=== PATIENT | female | born 1990 | race Caucasian/White ===

== ENCOUNTER → 2023-04-03 | Emergency (ER) | payer OTHER ==
--- OUTSIDE RECORDS SUMMARY | 2023-04-03 09:17 | XMS REPORT | Continuity of Care Document ---
Author Name Unknown Address [address] [facility] [address] [place] [id number] [facility] thconnect Address [address] [facility] 1 [address] [place] [address] Care Team Providers Care Power Barker Name Role Phone Skinny Steward Attending Clinician Jonn Fitch Attending Clinician Unavailable Skinny Steward Admitting Clinician Toshia grewal Payers Payer Name Policy Type Policy Number Effective Date Expirati on Date Source Allergies, Adverse Reactions, Alerts Allergy Name Allergy Type Status Severity Reaction(s) Onset Date Inactive Date Treating Clinician Comments Source No Known Allergie s DA Active U 05-19 00:00: 00 [facility] No Known Allergie s DA Active U 05-19 00:00: 00 [facility] No Known Allergie s DA Active U 00:00: 00 [facility] Procedures Procedure Date / Time Performed Performing Clinicia n Source [id number] 2020-04-10 00:00:00 [facility] [id number] 2020-04-10 00:00:00 [facility] [id number] 2020-04-10 [id number] 2020-04-10 [facility]:00:00 [facility] [id number] 2020-04-10 00:00:00 [facility] Encounters Start Date/Time End Date/Time Encounter Type Admission Type Attending [facility] Care Department Encounter ID Source 2022-07-02 09:55:21 [facility] REE [facility]ANNER 0 [facility] 2020-04-16 10:16:00 Inpatient UR Jilljeannie Skinny [facility]ABM OBPP [id number] [facility] 2020-04-11 12:16:22 Inpatient Skinny Steward HCABM HCABM [id number] [facility] 2020-03-31 15:07:54 Inpatient Skinny Steward HCACL HCACL [id number] [facility] 2022-03-29 16:24:00 2022-03-29 17:08:00 Emergency EM Jonn Capone HCACL YAMINI [id number] [facility] 2020-05-26 01:53:00 2020-05-26 01:53:00 Outpatient [facility] [id number] [facility] 2020-04-06 13:55:00 2020-04-06 13:55:00 Outpatient Skinny Steward HCACL LABO [id number] [facility] Results Test Description Test Time Test Comments Results Result Co mments Source CBC W/AUTO [id number] 13:47:00* Test Item Value Reference Range Interpretation Comme nts WHITE BLOOD CELL (test code = WBC) 9.5 K/mm3 4.5-12.5 N RED BLOOD CELL (test code = RBC) 3.47 mill/mm3 3.7-5.2 L HEMOGLOBIN (test code = HGB) 10.6 gram/dL 11.5-15.5 L HEMATOCRIT (test code = HCT) 33.3 % 36.0-46.0 L MEAN CELL VOLUME (test code = MCV) 96.0 fL 80-98 N MEAN CELL HGB (test code = MCH) 30.5 picogram 27.0-33.0 N MEAN CELL HGB CONCETRATION (test code = MCHC) 31.8 gram/dL 33.0-36.0 L RED CELL DISTRIBUTION WIDTH (test code = RDW) 12.7 % 11.6-16.2 N RED CELL DISTRIBUTION WIDTH SD (test code = RDW-SD) 43.8 fL 37.0-51.0 N PLATELET COUNT (test code = PLT) 276 K/mm3 150-450 N MEAN PLATELET VOLUME (test c ode = MPV) 10.1 fL 6.7-11.0 N NEUTROPHIL % (test code = NT%) 80.2 % 39.0-69.0 H IMMATURE GRANULOCYTE % (test code = IG%) 0.5 % 0.0-5.0 N LYMPHOCYTE % (test code = LY%) 13.0 % 25.0-55.0 L MONOCYTE % (test code = MO%) 4.8 % 0.0-10.0 N EOSINOPHIL % (test code = EO%) 1.2 % 0.0-5.0 N BASOPHIL % (test code = BA%) 0.3 % 0.0-1.0 N NUCLEATED RBC % (test code = NRBC%) 0.0 % 0-0 N NEUTROPHIL # (test code = NT#) 7.62 K/mm3 1.8-7.7 N IMMATURE GRANULOCYTE # (test code = IG#) 0.05 x10 3/uL 0-0.03 H LYMPHOCYTE # (test code = LY#) 1.24 K/mm3 1.0-5.0 N MONOCYTE # (test code = MO#) 0.46 K/mm3 0-0.8 N EOSINOPHIL # (test code = EO#) 0.11 K/mm3 0.0-0.5 N BASOPHIL # (test code = BA#) 0.03 K/mm3 0.0-0.2 N NUCLEATED RBC # (test code = NRBC#) 0.00 K/mm3 0.0-0.1 N MANUAL DIFF REQUIRED (test c ode = MDIFF) NO - CT ABD PELVIS [id number] 12:43:00 [facility]Name: BETHANY HUFF : 1990 Sex: F Name: BETHANY HUFF [facility] : 1990 Age/S: 29 / F [address] Unit #: [id number] Loc: [place] [address] Phys: Skinny Steward MD Acct: [id number] Dis Date: Status: ADM IN PHONE #: [phone] Exam Date: 04/16/2020 1224 FAX #: [phone] Reason:POST OP PAIN. EXAMS: CPT CODE: [id number] CT ABD PELVIS W/CONT 77079 REASON FOR EXAM: POST OP PAIN. EXAM ORDER DATE: 04/16/2020 11:07 AM Ordering M.D.: Skinny Steward MD PROCEDURE: Axial CT images were acquired through the abdomen/pelvis at 5 mm intervals. Sagittal and coronal reformatted images were generated. Automated exposure control was utilized for this reduction. Phases of contrast: venous and delayed COMPARISON: CT abdomen and pelvis March 26, 2018 and pelvic ultrasound April 03, 2020 FINDINGS: Visualized thorax: Normal Hepatobiliary system: Normal Pancreas: Normal Spleen: Normal Adrenal glands: Normal Genitourinary system: Normal Gastrointestinal tract and appendix: There is mural thickening of a few loops of small bowel proximally. The stomach appears to be within normallimits. Moderate stool burden is seen in the cecum and ascending colon Abdominal vascular structures: Normal Peritoneum and retroperitoneum: No free fluid or free air. No omental or mesenteric masses. No abnormal lymph nodes. Musculoskeletal structures and abdominal wall: There is scoliosis of the spine IMPRESSION: There is mural thickening of a few loops of proximal small bowel which PAGE 1 Signed Report (CONTINUED) Name: BETHANY HUFF [facility] : 1990 Age/S: 29 / F [address] Unit #: [id number] Loc: [place] [address] Phys: Skinny Steward MD Acct: [id number] Dis Date: Status: ADM IN PHONE #: [phone] Exam Date: 04/16/2020 1224 FAX #: [phone] Reason: POST OP PAIN. EXAMS: CPT CODE: [id number] CT ABD PELVIS W/CONT 38320 (Continued) may represent an infectious or inflammatory enteritis. Moderate stool burden involving the cecum and ascending colon may represent constipation. Location: [facility] at 1243 Reported and signed by: Jacob Rodriguez MD CC: Skinny Steward Technologist:Alfredo Lorenzo RT(R),(MR),(CT) CTDI: DLP: Trnscb Date/Time: 04/16/2020 (1243) t.SDR.RR31 Orig Print D/T: S: 04/16/2020 (6166) PAGE 2 Signed [id number] 16:05:00* Test Item Value Reference Range Interpretation Comme nts UTERUS (test code = UTERUS) RUN DATE: 04/13/20 [employer] PAGE 1 RUN TIME: 1606 Specimen Inquiry RUN USER: INTERFACE PATIENT: BETHANY HUFF LOC: [facility] U #: [id number] AGE/SX: 29/F ROOM: 2034 RE04/10/20REG DR: Skinny Steward MD : 89 BED: A DIS: 04/13/20 STATUS: DIS IN TLOC: SPEC #: [id number] RECD: 04/11/20 STATUS: DINO REKim #: [id number] HAVEN: 04/10/20-1527 [facility] DR: Skinny Steward MD ENTERED: 04/11/20 SP TYPE: UTERUS OTHR DR: Vandana Bahena MD, Dang Thanh MDORDERED: GROSS COPIES TO: Vandana Bahena MD [address] [place] [address] Nahtalie Rodriguez MD [address] [place] [address] Skinny Steward MD [address] [facility] [address] [place] [address] MARKERS: ABNORMAL TISSUE, UTERUS PROCEDURES: GROSS (04/13/20-110) TISSUES: UTERUS, NOS - CERVIX,LEFT OVERY, BILATERAL FALLOPIAN TUBES CLINICAL HISTORY COLLECTION DATE: 04/10/20 PELVIC PAIN, DYSMENORRHEA FINAL DIAGNOSIS Uterus, cervix, left ovary, and bilateral fallopian tubes, total abdominal hysterectomy, bilateral salpingectomy, and left oophorectomy: MILD ACUTE AND CHRONIC INFLAMMATION, ECTO-ENDOCERVICAL JUNCTION SECRETORY ENDOMETRIUM ADHESIONS, POSTERIOR LOWER UTERINE SEROSA HEMORRHAGIC ADHESIONS AND FOLLICULAR CYSTS, LEFT OVARY ADHESIONS AND A HYDATID OF MORGAGNI CYST, LEFT FALLOPIAN TUBE UNREMARKABLE RIGHT FALLOPIAN TUBE NEGATIVE FOR DYSPLASIA, HYPERPLASIA, AND MALIGNANCY CONTINUED ON NEXT PAGE RUN DATE: 04/13/20 [facility] PAGE 2 RUN TIME: 1606 Specimen Inquiry RUN USER: INTERFACE SPEC #: [id number] PATIENT: BETHANY HUFF #[id number] (Continued) FINAL DIAGNOSIS (Continued) DMW/cyril A 02350 MACROSCOPIC The specimen is received in a small amount of formalin labeled with the patient's name, "uterus, cervix, bilateral fallopian tubes" and consists of a symmetrically shaped uterus with attached left fallopian tube and ovary and separate right fallopian tube. The specimen measures 8.7 cm from the top of the fundus to the cervix, 5.5 cm from right to left and up to 4.0 cm in A/P diameter. The specimen has a trimmed weight of 87.5 grams. A separate segment of fimbriated right fallopian tube measures 3 cm in length with diameter up to 0.7 cm. A segment of left fimbriated fallopian tube measures 4.5 cm in length with diameter up to 0.7 cm. The fimbriated end measures 2.0 cm in diameter. There is a small transparent cyst at the fimbriated end. The adjacent ovary is pink-garza to pink-rose, focally cystic and measures 3.0 x 3.0 x 2.0 cm. The serosal surface is pink-garza to pink-rose with filmy adhesions on the posterior surface. The ectocervical mucosa is pink-garza and smooth. The cervical os is parous appearing. No cervical or endocervical lesions are identified. The endometrial cavity is empty. The lining is red and measures up to 0.2 cm in thickness. The myometrium is pink-garza, homogenous and measures up to 1.5 cm in thickness. No focal lesions are identified. No focal lesions are seen in the right fallopian tube. The left fallopian tube is adherent to the surface of the adjacent ovary along the distal half. Several small cortical cysts are present within the ovary. A hemorrhagic cyst is also present. No discrete nodules or masses are seen. Section code: 1A-1B, anterior and posterior cervix; 1C-1D, anterior and posterior endomyometrium; 1E, serosal adhesions; 1D, right fallopian tube; 1G, left fallopian tube; 1H, left ovary and fallopian tube GROSS PERFORMED AT [facility] [address] [place] [id number] [phone] MICROSCOPIC All of the stains, including any controls performed, stain appropriately. MICROSCOPIC PERFORMED AT [facility] CONTINUED ON NEXT PAGE RUN DATE: 04/13/20 [facility] PAGE 3 RUN TIME: 1606 Specimen Inquiry RUN USER: INTERFACE SPEC #: [id number] PATIENT: BETHANY HUFF #[id number] (Continued) MICROSCOPIC (Continued) [address] [facility] [place] [address] [phone] PERFORMING SITE Diagnosis performed at: [facility], [place] [address] [place] [address] Signed SIGNATURE ON FILE Dalia Rondon MD 04/13/20 1605 END OF REPORT CBC W/AUTO [id number] 06:15:00* Test Item Value Reference Range Interpretation Comme nts WHITE BLOOD CELL (test code = WBC) 7.3 K/mm3 4.5-12.5 N RED BLOOD CELL (test code = RBC) 2.86 mill/mm3 3.7-5.2 L HEMOGLOBIN (test code = HGB) 8.8 gram/dL 11.5-15.5 L HEMATOCRIT (test code = HCT) 27.0 % 36.0-46.0 L MEAN CELL VOLUME (test code = MCV) 94.4 fL 80-98 N MEAN CELL HGB (test code = MCH) 30.8 picogram 27.0-33.0 N MEAN CELL HGB CONCETRATION (test code = MCHC) 32.6 gram/dL 33.0-36.0 L RED CELL DISTRIBUTION WIDTH (test code = RDW) 12.5 % 11.6-16.2 N RED CELL DISTRIBUTION WIDTH SD (test code = RDW-SD) 43.4 fL 37.0-51.0 N PLATELET COUNT (test code = PLT) 135 K/mm3 150-450 L MEAN PLATELET VOLUME (test c ode = MPV) 10.7 fL 6.7-11.0 N NEUTROPHIL % (test code = NT%) 69.8 % 39.0-69.0 H IMMATURE GRANULOCYTE % (test code = IG%) 0.4 % 0.0-5.0 N LYMPHOCYTE % (test code = LY%) 22.5 % 25.0-55.0 L MONOCYTE % (test code = MO%) 4.8 % 0.0-10.0 N EOSINOPHIL % (test code = EO%) 2.2 % 0.0-5.0 N BASOPHIL % (test code = BA%) 0.3 % 0.0-1.0 N NUCLEATED RBC % (test code = NRBC%) 0.0 % 0-0 N NEUTROPHIL # (test code = NT#) 5.08 K/mm3 1.8-7.7 N IMMATURE GRANULOCYTE # (test code = IG#) 0.03 x10 3/uL 0-0.03 N LYMPHOCYTE # (test code = LY#) 1.64 K/mm3 1.0-5.0 N MONOCYTE # (test code = MO#) 0.35 K/mm3 0-0.8 N EOSINOPHIL # (test code = EO#) 0.16 K/mm3 0.0-0.5 N BASOPHIL # (test code = BA#) 0.02 K/mm3 0.0-0.2 N NUCLEATED RBC # (test code = NRBC#) 0.00 K/mm3 0.0-0.1 N MANUAL DIFF REQUIRED (test c ode = MDIFF) NO - CT HEAD/BRAIN W/O [id number] 10:52:00 [facility]Name: BETHANY HUFF : 1990 Sex: F Name: BETHANY HUFF [facility] : 1990 Age/S: 29 / F [address] [facility] Unit #: [id number] Loc: [place] [address] Phys: Skinny Steward MD Acct: [id number] Dis Date: Status: ADM IN PHONE #: [phone] Exam Date: 04/12/2020 1039 FAX #: [phone] Reason: s/p cardiac arrest EXAMS: CPT CODE: [id number] CT HEAD/BRAIN W/O CONT 14999 HISTORY: s/p cardiac arrest TECHNIQUE: Noncontrast 2.[address] of the head. Examination acquired within 24 hours of arrival. Automated exposure control for dose reduction. COMPARISON: CT scan of the brain May 13, 2017 FINDINGS: No lacerations or contusions of the scalp or facial soft tissues. Calvarium and skull base are intact. No acute hemorrhage. No intracranial mass, mass effect, or midline shift. No effacement of the sulci or blanton-white matter interface. No cortical atrophy. No signs of white matter small-vessel disease. No hydrocephalus.. No extra-axial fluid collection. Visualized paranasal sinuses are clear. Mastoid air cells and middle ear cavities are clear. Cerumen is present in the bilateral external auditory canals. Orbital contents are unremarkable. IMPRESSION: Negative CT head. Location: [facility] at 1052 Reported and signed by: Jacob Rodriguez MD CC: Skinny Steward Technologist:Alfredo Lorenzo RT(R),(MR),(CT) CTDI: DLP: Trnscb Date/Time: 04/12/2020 (884) [id number].[email or web address].RR31 Orig Print D/T: S: 04/12/2020 (1326) PAGE 1 Signed ReportCBC W/AUTO [id number] 09:58:00* Test Item Value Reference Range Interpretation Comme nts WHITE BLOOD CELL (test code = WBC) 13.0 K/mm3 4.5-12.5 H RED BLOOD CELL (test code = RBC) 3.54 mill/mm3 3.7-5.2 L HEMOGLOBIN (test code = HGB) 10.7 gram/dL 11.5-15.5 L HEMATOCRIT (test code = HCT) 33.0 % 36.0-46.0 L MEAN CELL VOLUME (test code = MCV) 93.2 fL 80-98 N MEAN CELL HGB (test code = MCH) 30.2 picogram 27.0-33.0 N MEAN CELL HGB CONCETRATION (test code = MCHC) 32.4 gram/dL 33.0-36.0 L RED CELL DISTRIBUTION WIDTH (test code = RDW) 12.7 % 11.6-16.2 N RED CELL DISTRIBUTION WIDTH SD (test code = RDW-SD) 43.6 fL 37.0-51.0 N PLATELET COUNT (test code = PLT) 154 K/mm3 150-450 N MEAN PLATELET VOLUME (test c ode = MPV) 11.0 fL 6.7-11.0 N NEUTROPHIL % (test code = NT%) 78.0 % 39.0-69.0 H IMMATURE GRANULOCYTE % (test code = IG%) 0.3 % 0.0-5.0 N LYMPHOCYTE % (test code = LY%) 15.7 % 25.0-55.0 L MONOCYTE % (test code = MO%) 5.8 % 0.0-10.0 N EOSINOPHIL % (test code = EO%) 0.1 % 0.0-5.0 N BASOPHIL % (test code = BA%) 0.1 % 0.0-1.0 N NUCLEATED RBC % (test code = NRBC%) 0.0 % 0-0 N NEUTROPHIL # (test code = NT#) 10.17 K/mm3 1.8-7.7 H IMMATURE GRANULOCYTE # (test code = IG#) 0.04 x10 3/uL 0-0.03 H LYMPHOCYTE # (test code = LY#) 2.05 K/mm3 1.0-5.0 N MONOCYTE # (test code = MO#) 0.76 K/mm3 0-0.8 N EOSINOPHIL # (test code = EO#) 0.01 K/mm3 0.0-0.5 N BASOPHIL # (test code = BA#) 0.01 K/mm3 0.0-0.2 N NUCLEATED RBC # (test code = NRBC#) 0.00 K/mm3 0.0-0.1 N COMPREHENSIVE METABOLIC [id number] 09:13:00* Test Item Value Reference Range Interpretation Comme nts SODIUM (test code = NA) 137 mmol/L 136-145 N POTASSIUM (test code = K) 3.6 mmol/L 3.5-5.1 N CHLORIDE (test code = CL) 110.0 mmol/L 98-107 H CARBON DIOXIDE (test code = CO2) 26.0 mmol/L 21-32 N ANION GAP (test code = GAP) 4.6 10-20 L GLUCOSE (test code = GLU) 108 mg/dL 74-106 H BLOOD UREA NITROGEN (test code = BUN) 8 mg/dL 7-18 N GLOMERULAR FILTRATION RATE (test code = GFR) > 60 mL/min See_Comment Estimated GFR by using Modified MDRD formula.Chronic kidney disease is defined as either kidney damageor GFR <60 mL/min/1.73 m2 for >3 months. [Automated message] The system which generated this result transmitted reference range: >=60. The reference range was not used to interpret this result as normal/abnormal. CREATININE (test code = CREAT) 0.50 mg/dL 0.55-1.02 L Note change in reference range due to change in reagent. BUN/CREATININE RATIO (test code = BUN/CREA) 15.1 10-20 N TOTAL PROTEIN (test code = PROT) 5.2 gram/dL 6.4-8.2 L ALBUMIN (test code = ALB) 3.0 g/dL 3.4-5.0 L GLOBULIN (test code = GLOB) 2.2 gram/dL 2.7-4.2 L ALBUMIN/GLOBULIN RATIO (test code = A/G) 1.4 0.75-1.50 N CALCIUM (test code = CA) 7.8 mg/dL 8.5-10.1 L BILIRUBIN TOTAL (test code = BILT) 0.60 mg/dL 0.0-1.0 N SGOT/AST (test code = AST) 32 IUnit/L 15-37 N SGPT/ALT (test code = ALT) 18 IUnit/L 12-78 N ALKALINE PHOSPHATASE TOTAL (test code = ALKP) 44 IUnit/L 45-117 L Note change in reference range due to change in reagent. [id number] 08:45:00* Test Item Value Reference Range Interpretation Comme nts FIBRINOGEN (test code = FIB) 268 mg/dL 200-400 N - XR CHEST 1 [id number] 07:21:00 [facility])Name: BETHANY HUFF : 1990 Sex: F FAX: Mark Snyder DO [phone] [place]: [address]: [facility] FAX: Skinny Blank [phone] Name: BETHANY HUFF [facility] : 1990 Age/S: 29/F [address] Unit #: [id number] Loc: V.[facility] [place] [address] Phys: Mark Cody DO Acct: [id number] Dis Date: Status: ADMIN PHONE #: [phone] Exam Date: 04/11/2020520 FAX #: [phone] Reason: S/P CPR EXAMS: CPTCODE: [id number] XR CHEST 1 V 48814 REASON FOR EXAM: S/P CPR Exam Order Date: 04/11/2020 2:00 AM Ordering Dedrick: Mark Cody DO PROCEDURE: - XR CHEST 1 V COMPARISON: 05/13/2017 FINDINGS: Lines/Tubes: None Patchy bilateral airspace opacities. There is no pleural effusion or pneumothorax. Pulmonary vascularity is within normal limits. Cardiomediastinal silhouette and mediastinal contours are unchanged when accounting for differences in technique. Musculoskeletal structures and visualized portions of the upper abdomen are also unchanged. IMPRESSION: Patchy bilateral airspace opacities may represent infectious process, edema, or atelectasis. Location: [facility] at 0721 Reported and signed by: Darek De La Vega M.D. CC: Mark Cody DO; Skinny Steward Technologist: OPAL YUSUF JR RT(R) Trnscrd Date/Time/By: 04/11/2020 (720) : By: [id number] Orig Print D/T: S: 04/11/2020 (8035) PAGE 1 Signed ReportCOMPREHENSIVE METABOLIC [id number] 03:46:00* Test Item Value Reference Range Interpretation Comme nts SODIUM (test code = NA) 137 mmol/L 136-145 N POTASSIUM (test code = K) 3.8 mmol/L 3.5-5.1 N CHLORIDE (test code = CL) 113.0 mmol/L 98-107 H CARBON DIOXIDE (test code = CO2) 22.0 mmol/L 21-32 N ANION GAP (test code = GAP) 5.8 10-20 L GLUCOSE (test code = GLU) 122 mg/dL 74-106 H BLOOD UREA NITROGEN (test code = BUN) 8 mg/dL 7-18 N GLOMERULAR FILTRATION RATE (test code = GFR) > 60 mL/min See_Comment Estimated GFR by using Modified MDRD formula.Chronic kidney disease is defined as either kidney damageor GFR <60 mL/min/1.73 m2 for >3 months. [Automated message] The system which generated this result transmitted reference range: >=60. The reference range was not used to interpret this result as normal/abnormal. CREATININE (test code = CREAT) 0.50 mg/dL 0.55-1.02 L Note change in reference range due to change in reagent. BUN/CREATININE RATIO (test code = BUN/CREA) 15.7 10-20 N TOTAL PROTEIN (test code = PROT) 4.8 gram/dL 6.4-8.2 L ALBUMIN (test code = ALB) 2.8 g/dL 3.4-5.0 L GLOBULIN (test code = GLOB) 2.0 gram/dL 2.7-4.2 L ALBUMIN/GLOBULIN RATIO (test code = A/G) 1.4 0.75-1.50 N CALCIUM (test code = CA) 7.2 mg/dL 8.5-10.1 L BILIRUBIN TOTAL (test code = BILT) 0.50 mg/dL 0.0-1.0 N SGOT/AST (test code = AST) 29 IUnit/L 15-37 N SGPT/ALT (test code = ALT) 17 IUnit/L 12-78 N ALKALINE PHOSPHATASE TOTAL (test code = ALKP) 40 IUnit/L 45-117 L Note change in reference range due to change in reagent. [id number] 03:46:00* Test Item Value Reference Range Interpretation Comme nts PHOSPHORUS (test code = PHOS) 3.4 mg/dL 2.5-4.9 N CALCIUM [id number] 03:46:00* Test Item Value Reference Range Interpretation Comme nts CALCIUM IONIZED (test code = CIRILO) 1.19 mmol/L 1.12-1.32 N COMPREHENSIVE METABOLIC [id number] 03:44:00* Test Item Value Reference Range Interpretation Comme nts SODIUM (test code = NA) 137 mmol/L 136-145 N POTASSIUM (test code = K) 3.8 mmol/L 3.5-5.1 N CHLORIDE (test code = CL) 113.0 mmol/L 98-107 H CARBON DIOXIDE (test code = CO2) 22.0 mmol/L 21-32 N ANION GAP (test code = GAP) 5.8 10-20 L GLUCOSE (test code = GLU) 122 mg/dL 74-106 H BLOOD UREA NITROGEN (test code = BUN) 8 mg/dL 7-18 N GLOMERULAR FILTRATION RATE (test code = GFR) > 60 mL/min See_Comment Estimated GFR by using Modified MDRD formula.Chronic kidney disease is defined as either kidney damageor GFR <60 mL/min/1.73 m2 for >3 months. [Automated message] The system which generated this result transmitted reference range: >=60. The reference range was not used to interpret this result as normal/abnormal. CREATININE (test code = CREAT) 0.50 mg/dL 0.55-1.02 L Note change in reference range due to change in reagent. BUN/CREATININE RATIO (test code = BUN/CREA) 15.7 10-20 N TOTAL PROTEIN (test code = PROT) 4.8 gram/dL 6.4-8.2 L ALBUMIN (test code = ALB) 2.8 g/dL 3.4-5.0 L GLOBULIN (test code = GLOB) 2.0 gram/dL 2.7-4.2 L ALBUMIN/GLOBULIN RATIO (test code = A/G) 1.4 0.75-1.50 N CALCIUM (test code = CA) 7.2 mg/dL 8.5-10.1 L BILIRUBIN TOTAL (test code = BILT) 0.50 mg/dL 0.0-1.0 N SGOT/AST (test code = AST) 29 IUnit/L 15-37 N SGPT/ALT (test code = ALT) 17 IUnit/L 12-78 N ALKALINE PHOSPHATASE TOTAL (test code = ALKP) 40 IUnit/L 45-117 L Note change in reference range due to change in reagent. [id number] 03:44:00* Test Item Value Reference Range Interpretation Comme nts PHOSPHORUS (test code = PHOS) 3.4 mg/dL 2.5-4.9 N CALCIUM [id number] 03:44:00* Test Item Value Reference Range Interpretation Comme nts CALCIUM IONIZED (test code = CIRILO) mmol/L 1.12-1.32 CBC W/AUTO [id number] 02:59:00* Test Item Value Reference Range Interpretation Comme nts WHITE BLOOD CELL (test code = WBC) 16.1 K/mm3 4.5-12.5 H RED BLOOD CELL (test code = RBC) 3.65 mill/mm3 3.7-5.2 L HEMOGLOBIN (test code = HGB) 11.1 gram/dL 11.5-15.5 L HEMATOCRIT (test code = HCT) 34.8 % 36.0-46.0 L MEAN CELL VOLUME (test code = MCV) 95.3 fL 80-98 N MEAN CELL HGB (test code = MCH) 30.4 picogram 27.0-33.0 N MEAN CELL HGB CONCETRATION (test code = MCHC) 31.9 gram/dL 33.0-36.0 L RED CELL DISTRIBUTION WIDTH (test code = RDW) 12.6 % 11.6-16.2 N RED CELL DISTRIBUTION WIDTH SD (test code = RDW-SD) 43.9 fL 37.0-51.0 N PLATELET COUNT (test code = PLT) 168 K/mm3 150-450 N MEAN PLATELET VOLUME (test c ode = MPV) 10.8 fL 6.7-11.0 N NEUTROPHIL % (test code = NT%) 91.5 % 39.0-69.0 H IMMATURE GRANULOCYTE % (test code = IG%) 0.4 % 0.0-5.0 N LYMPHOCYTE % (test code = LY%) 4.5 % 25.0-55.0 L MONOCYTE % (test code = MO%) 3.5 % 0.0-10.0 N EOSINOPHIL % (test code = EO%) 0.0 % 0.0-5.0 N BASOPHIL % (test code = BA%) 0.1 % 0.0-1.0 N NUCLEATED RBC % (test code = NRBC%) 0.0 % 0-0 N NEUTROPHIL # (test code = NT#) 14.69 K/mm3 1.8-7.7 H IMMATURE GRANULOCYTE # (test code = IG#) 0.06 x10 3/uL 0-0.03 H LYMPHOCYTE # (test code = LY#) 0.73 K/mm3 1.0-5.0 L MONOCYTE # (test code = MO#) 0.56 K/mm3 0-0.8 N EOSINOPHIL # (test code = EO#) 0.00 K/mm3 0.0-0.5 N BASOPHIL # (test code = BA#) 0.02 K/mm3 0.0-0.2 N NUCLEATED RBC # (test code = NRBC#) 0.00 K/mm3 0.0-0.1 N MANUAL DIFF REQUIRED (test c ode = MDIFF) NO CBC W/MANUAL [id number] 21:13:00* Test Item Value Reference Range Interpretation Comme nts WHITE BLOOD CELL (test code = WBC) 21.9 K/mm3 4.5-12.5 H RED BLOOD CELL (test code = RBC) 3.80 mill/mm3 3.7-5.2 N HEMOGLOBIN (test code = HGB) 12.1 gram/dL 11.5-15.5 N HEMATOCRIT (test code = HCT) 36.3 % 36.0-46.0 N MEAN CELL VOLUME (test code = MCV) 95.5 fL 80-98 N MEAN CELL HGB (test code = MCH) 31.8 picogram 27.0-33.0 N MEAN CELL HGB CONCETRATION (test code = MCHC) 33.3 gram/dL 33.0-36.0 N RED CELL DISTRIBUTION WIDTH (test code = RDW) 12.6 % 11.6-16.2 N RED CELL DISTRIBUTION WIDTH SD (test code = RDW-SD) 44.0 fL 37.0-51.0 N PLATELET COUNT (test code = PLT) 169 K/mm3 150-450 N MEAN PLATELET VOLUME (test code = MPV) 10.7 fL 6.7-11.0 N IMMATURE GRANULOCYTE % (test code = IG%) 0.5 % 0.0-5.0 N NUCLEATED RBC % (test code = NRBC%) 0.0 % 0-0 N NEUTROPHIL # (test code = NT#) 20.36 K/mm3 1.8-7.7 H IMMATURE GRANULOCYTE # (test code = IG#) 0.10 x10 3/uL 0-0.03 H LYMPHOCYTE # (test code = LY#) 0.58 K/mm3 1.0-5.0 L MONOCYTE # (test code = MO#) 0.86 K/mm3 0-0.8 H EOSINOPHIL # (test code = EO#) 0.00 K/mm3 0.0-0.5 N BASOPHIL # (test code = BA#) 0.04 K/mm3 0.0-0.2 N NUCLEATED RBC # (test code = NRBC#) 0.00 K/mm3 0.0-0.1 N MANUAL DIFF REQUIRED (test code = MDIFF) YES STAIN ACCEPTABILITY (test code = STN ACCEPTABLE) STAIN ACCEPTABLE TOTAL CELLS COUNTED (test code = TCC) 115 #CELLS SEGMENTED NEUTROPHILS (test code = SEG) 79.1 % 39-69 H BAND NEUTROPHIL (test code = BAND) 14.8 % 0-10 H LYMPHOCYTE (test code = LYMPH) 0.9 % 25-55 L REACTIVE LYMPH (test code = RELYMPH) 0 % MONOCYTE (test code = MON) 5.2 % 0-10 N EOSINOPHIL (test code = EOS) 0 % 0.0-5.0 N BASOPHIL (test code = BASO) 0 % 0-1.0 N METAMYELOCYTE (test code = META) 0 % 0-0 N MYELOCYTE (test code = MYELO) 0 % 0.0-0.0 N PROMYELOCYTE (test code = PROM) 0 % 0-0 N PLATELET ESTIMATE (test code = PLTEST) ADEQUATE PLATELET MORPHOLOGY (test code = PLTMORPH) NORMAL IMMATURE FORMS (test code = IMMAT) 0 % 0-0 N BASIC METABOLIC [id number] 20:59:00* Test Item Value Reference Range Interpretation Comme nts SODIUM (test code = NA) 140 mmol/L 136-145 N POTASSIUM (test code = K) 3.6 mmol/L 3.5-5.1 N CHLORIDE (test code = CL) 115.0 mmol/L 98-107 H CARBON DIOXIDE (test code = CO2) 23.0 mmol/L 21-32 N ANION GAP (test code = GAP) 5.6 10-20 L GLUCOSE (test code = GLU) 152 mg/dL 74-106 H BLOOD UREA NITROGEN (test code = BUN) 9 mg/dL 7-18 N GLOMERULAR FILTRATION RATE (test code = GFR) > 60 mL/min See_Comment Estimated GFR by using Modified MDRD formula.Chronic kidney disease is defined as either kidney damageor GFR <60 mL/min/1.73 m2 for >3 months. [Automated message] The system which generated this result transmitted reference range: >=60. The reference range was not used to interpret this result as normal/abnormal. CREATININE (test code = CREAT) 0.50 mg/dL 0.55-1.02 L Note change in reference range due to change in reagent. BUN/CREATININE RATIO (test code = BUN/CREA) 19.1 10-20 N CALCIUM (test code = CA) 7.6 mg/dL 8.5-10.1 L [id number] 20:54:00* Test Item Value Reference Range Interpretation Comme nts FIBRINOGEN (test code = FIB) 186 mg/dL 200-400 L PROTHROMBIN [id number] 20:35:00* Test Item Value Reference Range Interpretation Comme nts PROTHROMBIN TIME PATIENT (test code = PTP) 14.0 seconds 9.0-14.0 N INTERNATIONAL NORMAL RATIO (test code = INR) 1.2 0.8-1.2 N The therapeutic range for oral anticoagulant therapy formost indications is an international normalized ratio (INR)of between 2.0 and 3.0. The recommended therapeutic INRrange for various clinical situations is listed below: Clinical Situation INR range Pulmonary embolism treatment (2.0-3.0)Venous thrombosis treatmentVenous thrombosis prophylaxis (high risk surgery)Prevention of systemic embolism from: Acute myocardial infarction Valvular heart disease Atrial fibrillation Mechanical prosthetic heart valves (2.5-3.5) IS PATIENT ON ANTICOAGULANTS? NTHROMBOPLASTIN TIME [id number] 20:35:00* Test Item Value Reference Range Interpretation Comme nts THROMBOPLASTIN TIME PARTIAL (test code = PTT) 27.2 seconds 23.0-37.0 N IS PATIENT ON ANTICOAGULANTS? NCBC W/MANUAL [id number] 20:25:00* Test Item Value Reference Range Interpretation Comme nts WHITE BLOOD CELL (test code = WBC) 21.9 K/mm3 4.5-12.5 H RED BLOOD CELL (test code = RBC) 3.80 mill/mm3 3.7-5.2 N HEMOGLOBIN (test code = HGB) 12.1 gram/dL 11.5-15.5 N HEMATOCRIT (test code = HCT) 36.3 % 36.0-46.0 N MEAN CELL VOLUME (test code = MCV) 95.5 fL 80-98 N MEAN CELL HGB (test code = MCH) 31.8 picogram 27.0-33.0 N MEAN CELL HGB CONCETRATION (test code = MCHC) 33.3 gram/dL 33.0-36.0 N RED CELL DISTRIBUTION WIDTH (test code = RDW) 12.6 % 11.6-16.2 N RED CELL DISTRIBUTION WIDTH SD (test code = RDW-SD) 44.0 fL 37.0-51.0 N PLATELET COUNT (test code = PLT) 169 K/mm3 150-450 N MEAN PLATELET VOLUME (test c ode = MPV) 10.7 fL 6.7-11.0 N IMMATURE GRANULOCYTE % (test code = IG%) 0.5 % 0.0-5.0 N NUCLEATED RBC % (test code = NRBC%) 0.0 % 0-0 N NEUTROPHIL # (test code = NT#) 20.36 K/mm3 1.8-7.7 H IMMATURE GRANULOCYTE # (test code = IG#) 0.10 x10 3/uL 0-0.03 H LYMPHOCYTE # (test code = LY#) 0.58 K/mm3 1.0-5.0 L MONOCYTE # (test code = MO#) 0.86 K/mm3 0-0.8 H EOSINOPHIL # (test code = EO#) 0.00 K/mm3 0.0-0.5 N BASOPHIL # (test code = BA#) 0.04 K/mm3 0.0-0.2 N NUCLEATED RBC # (test code = NRBC#) 0.00 K/mm3 0.0-0.1 N MANUAL DIFF REQUIRED (test c ode = MDIFF) YES STAIN ACCEPTABILITY (test co de = STN ACCEPTABLE) TOTAL CELLS COUNTED (test co de = TCC) #CELLS SEGMENTED NEUTROPHILS (test code = SEG) % 39-69 LYMPHOCYTE (test code = LYMPH) % 25-55 MONOCYTE (test code = MON) % 0-10 EOSINOPHIL (test code = EOS) % 0.0-5.0 CABOT RINGS (test code = CAB) MORPHOLOGY COMMENT (test cod e = MOC) PLATELET ESTIMATE (test code = PLTEST) PLATELET MORPHOLOGY (test co de = PLTMORPH) CBC W/MANUAL [id number] 20:25:00* Test Item Value Reference Range Interpretation Comme nts WHITE BLOOD CELL (test code = WBC) 21.9 K/mm3 4.5-12.5 H RED BLOOD CELL (test code = RBC) 3.80 mill/mm3 3.7-5.2 N HEMOGLOBIN (test code = HGB) 12.1 gram/dL 11.5-15.5 N HEMATOCRIT (test code = HCT) 36.3 % 36.0-46.0 N MEAN CELL VOLUME (test code = MCV) 95.5 fL 80-98 N MEAN CELL HGB (test code = MCH) 31.8 picogram 27.0-33.0 N MEAN CELL HGB CONCETRATION (test code = MCHC) 33.3 gram/dL 33.0-36.0 N RED CELL DISTRIBUTION WIDTH (test code = RDW) 12.6 % 11.6-16.2 N RED CELL DISTRIBUTION WIDTH SD (test code = RDW-SD) 44.0 fL 37.0-51.0 N PLATELET COUNT (test code = PLT) 169 K/mm3 150-450 N MEAN PLATELET VOLUME (test c ode = MPV) 10.7 fL 6.7-11.0 N IMMATURE GRANULOCYTE % (test code = IG%) 0.5 % 0.0-5.0 N NUCLEATED RBC % (test code = NRBC%) 0.0 % 0-0 N NEUTROPHIL # (test code = NT#) 20.36 K/mm3 1.8-7.7 H IMMATURE GRANULOCYTE # (test code = IG#) 0.10 x10 3/uL 0-0.03 H LYMPHOCYTE # (test code = LY#) 0.58 K/mm3 1.0-5.0 L MONOCYTE # (test code = MO#) 0.86 K/mm3 0-0.8 H EOSINOPHIL # (test code = EO#) 0.00 K/mm3 0.0-0.5 N BASOPHIL # (test code = BA#) 0.04 K/mm3 0.0-0.2 N NUCLEATED RBC # (test code = NRBC#) 0.00 K/mm3 0.0-0.1 N MANUAL DIFF REQUIRED (test c ode = MDIFF) YES STAIN ACCEPTABILITY (test co de = STN ACCEPTABLE) TOTAL CELLS COUNTED (test co de = TCC) #CELLS SEGMENTED NEUTROPHILS (test code = SEG) % 39-69 LYMPHOCYTE (test code = LYMPH) % 25-55 MONOCYTE (test code = MON) % 0-10 EOSINOPHIL (test code = EOS) % 0.0-5.0 CABOT RINGS (test code = CAB) MORPHOLOGY COMMENT (test cod e = MOC) PLATELET ESTIMATE (test code = PLTEST) PLATELET MORPHOLOGY (test co de = PLTMORPH) CBC W/MANUAL [id number] 20:25:00* Test Item Value Reference Range Interpretation Comme nts WHITE BLOOD CELL (test code = WBC) 21.9 K/mm3 4.5-12.5 H RED BLOOD CELL (test code = RBC) 3.80 mill/mm3 3.7-5.2 N HEMOGLOBIN (test code = HGB) 12.1 gram/dL 11.5-15.5 N HEMATOCRIT (test code = HCT) 36.3 % 36.0-46.0 N MEAN CELL VOLUME (test code = MCV) 95.5 fL 80-98 N MEAN CELL HGB (test code = MCH) 31.8 picogram 27.0-33.0 N MEAN CELL HGB CONCETRATION (test code = MCHC) 33.3 gram/dL 33.0-36.0 N RED CELL DISTRIBUTION WIDTH (test code = RDW) 12.6 % 11.6-16.2 N RED CELL DISTRIBUTION WIDTH SD (test code = RDW-SD) 44.0 fL 37.0-51.0 N PLATELET COUNT (test code = PLT) 169 K/mm3 150-450 N MEAN PLATELET VOLUME (test c ode = MPV) 10.7 fL 6.7-11.0 N IMMATURE GRANULOCYTE % (test code = IG%) 0.5 % 0.0-5.0 N NUCLEATED RBC % (test code = NRBC%) 0.0 % 0-0 N NEUTROPHIL # (test code = NT#) 20.36 K/mm3 1.8-7.7 H IMMATURE GRANULOCYTE # (test code = IG#) 0.10 x10 3/uL 0-0.03 H LYMPHOCYTE # (test code = LY#) 0.58 K/mm3 1.0-5.0 L MONOCYTE # (test code = MO#) 0.86 K/mm3 0-0.8 H EOSINOPHIL # (test code = EO#) 0.00 K/mm3 0.0-0.5 N BASOPHIL # (test code = BA#) 0.04 K/mm3 0.0-0.2 N NUCLEATED RBC # (test code = NRBC#) 0.00 K/mm3 0.0-0.1 N MANUAL DIFF REQUIRED (test c ode = MDIFF) YES STAIN ACCEPTABILITY (test co de = STN ACCEPTABLE) TOTAL CELLS COUNTED (test co de = TCC) #CELLS SEGMENTED NEUTROPHILS (test code = SEG) % 39-69 LYMPHOCYTE (test code = LYMPH) % 25-55 MONOCYTE (test code = MON) % 0-10 EOSINOPHIL (test code = EOS) % 0.0-5.0 MORPHOLOGY COMMENT (test cod e = MOC) PLATELET ESTIMATE (test code = PLTEST) PLATELET MORPHOLOGY (test co de = PLTMORPH) CBC W/MANUAL [id number] 20:25:00* Test Item Value Reference Range Interpretation Comme nts WHITE BLOOD CELL (test code = WBC) 21.9 K/mm3 4.5-12.5 H RED BLOOD CELL (test code = RBC) 3.80 mill/mm3 3.7-5.2 N HEMOGLOBIN (test code = HGB) 12.1 gram/dL 11.5-15.5 N HEMATOCRIT (test code = HCT) 36.3 % 36.0-46.0 N MEAN CELL VOLUME (test code = MCV) 95.5 fL 80-98 N MEAN CELL HGB (test code = MCH) 31.8 picogram 27.0-33.0 N MEAN CELL HGB CONCETRATION (test code = MCHC) 33.3 gram/dL 33.0-36.0 N RED CELL DISTRIBUTION WIDTH (test code = RDW) 12.6 % 11.6-16.2 N RED CELL DISTRIBUTION WIDTH SD (test code = RDW-SD) 44.0 fL 37.0-51.0 N PLATELET COUNT (test code = PLT) 169 K/mm3 150-450 N MEAN PLATELET VOLUME (test c ode = MPV) 10.7 fL 6.7-11.0 N IMMATURE GRANULOCYTE % (test code = IG%) 0.5 % 0.0-5.0 N NUCLEATED RBC % (test code = NRBC%) 0.0 % 0-0 N NEUTROPHIL # (test code = NT#) 20.36 K/mm3 1.8-7.7 H IMMATURE GRANULOCYTE # (test code = IG#) 0.10 x10 3/uL 0-0.03 H LYMPHOCYTE # (test code = LY#) 0.58 K/mm3 1.0-5.0 L MONOCYTE # (test code = MO#) 0.86 K/mm3 0-0.8 H EOSINOPHIL # (test code = EO#) 0.00 K/mm3 0.0-0.5 N BASOPHIL # (test code = BA#) 0.04 K/mm3 0.0-0.2 N NUCLEATED RBC # (test code = NRBC#) 0.00 K/mm3 0.0-0.1 N MANUAL DIFF REQUIRED (test c ode = MDIFF) YES STAIN ACCEPTABILITY (test co de = STN ACCEPTABLE) TOTAL CELLS COUNTED (test co de = TCC) #CELLS SEGMENTED NEUTROPHILS (test code = SEG) % 39-69 LYMPHOCYTE (test code = LYMPH) % 25-55 MONOCYTE (test code = MON) % 0-10 MORPHOLOGY COMMENT (test cod e = MOC) PLATELET ESTIMATE (test code = PLTEST) PLATELET MORPHOLOGY (test co de = PLTMORPH) CBC W/MANUAL [id number] 20:25:00* Test Item Value Reference Range Interpretation Comme nts WHITE BLOOD CELL (test code = WBC) 21.9 K/mm3 4.5-12.5 H RED BLOOD CELL (test code = RBC) 3.80 mill/mm3 3.7-5.2 N HEMOGLOBIN (test code = HGB) 12.1 gram/dL 11.5-15.5 N HEMATOCRIT (test code = HCT) 36.3 % 36.0-46.0 N MEAN CELL VOLUME (test code = MCV) 95.5 fL 80-98 N MEAN CELL HGB (test code = MCH) 31.8 picogram 27.0-33.0 N MEAN CELL HGB CONCETRATION (test code = MCHC) 33.3 gram/dL 33.0-36.0 N RED CELL DISTRIBUTION WIDTH (test code = RDW) 12.6 % 11.6-16.2 N RED CELL DISTRIBUTION WIDTH SD (test code = RDW-SD) 44.0 fL 37.0-51.0 N PLATELET COUNT (test code = PLT) 169 K/mm3 150-450 N MEAN PLATELET VOLUME (test c ode = MPV) 10.7 fL 6.7-11.0 N IMMATURE GRANULOCYTE % (test code = IG%) 0.5 % 0.0-5.0 N NUCLEATED RBC % (test code = NRBC%) 0.0 % 0-0 N NEUTROPHIL # (test code = NT#) 20.36 K/mm3 1.8-7.7 H IMMATURE GRANULOCYTE # (test code = IG#) 0.10 x10 3/uL 0-0.03 H LYMPHOCYTE # (test code = LY#) 0.58 K/mm3 1.0-5.0 L MONOCYTE # (test code = MO#) 0.86 K/mm3 0-0.8 H EOSINOPHIL # (test code = EO#) 0.00 K/mm3 0.0-0.5 N BASOPHIL # (test code = BA#) 0.04 K/mm3 0.0-0.2 N NUCLEATED RBC # (test code = NRBC#) 0.00 K/mm3 0.0-0.1 N MANUAL DIFF REQUIRED (test c ode = MDIFF) YES STAIN ACCEPTABILITY (test co de = STN ACCEPTABLE) TOTAL CELLS COUNTED (test co de = TCC) #CELLS SEGMENTED NEUTROPHILS (test code = SEG) % 39-69 LYMPHOCYTE (test code = LYMPH) % 25-55 MONOCYTE (test code = MON) % 0-10 EOSINOPHIL (test code = EOS) % 0.0-5.0 CABOT RINGS (test code = CAB) MORPHOLOGY COMMENT (test cod e = MOC) PLATELET ESTIMATE (test code = PLTEST) PLATELET MORPHOLOGY (test co de = PLTMORPH) - XR ABDOMEN AP 1 [id number] 17:47:00 [facility])Name: BETHANY HUFF : 1990 Sex: F FAX: Skinny Blank [phone] [place]: St: REG Name: BETHANY HUFF [facility] : 1990 Age/S: 29/F [address] [facility] Unit #: [id number] Loc: [place] [address] Phys: Skinny Steward MD Acct: [id number] Dis Date: Status: REG [facility] PHONE #: [phone] Exam Date: 04/10/2020 1637 FAX #: [phone] Reason: NEEDLE COUNT EXAMS: CPT CODE: [id number] XR ABDOMEN AP 1 V 17089 EXAM: Abdomen, one view; INFORMATION: Needle count; history of pelvic pain and dysmenorrhea; IMPRESSION: 1. 1. A KUB with includes the the abdomen and the cranial two thirds of the pelvis but not the distal portion, shows no radiopaque foreign body. 2. Unremarkable bowel gas pattern. 3. No abnormal calcifications. Location code: [facility] at 1747 Reported and signed by: José Miguel Lema M.D. CC: Skinny Steward Technologist: RT Zhane(R Trnscrd Date/Time/By: 04/10/2020 (8771) : By: AdriGRW Orig Print D/T: S: 04/10/2020 (8505) PAGE 1 Signed [id number] 10:15:00* Test Item Value Reference Range Interpretation Comme nts GLUBED (test code = GLUBED) 75 mg/dL 74-106 N Performed by cer yarelis form grader operator at [facility] Novel Coronavirus 12:03:00* Test Item Value Reference Range Interpretation Comme nts Novel Coronavirus 2018 Inhouse (test code = [id number]) Negative Negative Positive resul ts are indicative of the presence [id number] RNA, clinical correlation with patient historyand other diagnostic information is necessary to determinepatient infection status. Positive results do not rule outbacterial infection or co-infection with other viruses. Negative results do not preclude SARS-CoV-2 infection andshould not be used as the sole basis for patient managementdecisions. Negative results must be combined with otherclinical observations, patient history, and epidemiologicalinformation . Detection of SARS-CoV-2 RNA may be affected bysample collection methods, storage conditions, and/or stageof infection. Viral RNA mutations, vaccinations, antiviraltherapeutics, antibiotics, chemotherapeutic orimmunosuppressant drugs have not been evaluated for effectson detection. Results are for the identification of SARS-CoV-2 RNA usingthe [employer] M2000 System under the FDA Emergency UseAuthorization. The testing is performed by personneltrained in the procedures for the [employer] M2000 moleculardiagnostic SARS-CoV-2 assay in vitro. Novel Coronavirus 12:03:00* Test Item Value Reference Range Interpretation Comme nts Novel Coronavirus 2018 Inhouse (test code = [id number]) Negative Negative Positive resul ts are indicative of the presence meXJNX-[id number]-7 RNA, clinical correlation with patient historyand other diagnostic information is necessary to determinepatient infection status. Positive results do not rule outbacterial infection or co-infection with other viruses. Negative results do not preclude SARS-CoV-2 infection andshould not be used as the sole basis for patient managementdecisions. Negative results must be combined with otherclinical observations, patient history, and epidemiologicalinformation . Detection of SARS-CoV-2 RNA may be affected bysample collection methods, storage conditions, and/or stageof infection. Viral RNA mutations, vaccinations, antiviraltherapeutics, antibiotics, chemotherapeutic orimmunosuppressant drugs have not been evaluated for effectson detection. Results are for the identification of SARS-CoV-2 RNA usingthe [employer] M2000 System under the FDA Emergency UseAuthorization. The testing is performed by personneltrained in the procedures for the [employer] M2000 moleculardiagnostic SARS-CoV-2 assay in vitro. HCG SERUM [id number] 14:04:00* Test Item Value Reference Range Interpretation Comme nts HCG SERUM QUAL (test code = HCGQL) NEGATIVE NEGATIVE This HCGQL test is NOT applicable for MALE patients.Check with nurse about probable order error.If Tumor Marker Test needed, nurse should order test "HCGTU"(Test #[id number]) COMPREHENSIVE METABOLIC [id number] 14:00:00* Test Item Value Reference Range Interpretation Comme nts SODIUM (test code = NA) 138 mmol/L 136-145 N POTASSIUM (test code = K) 3.9 mmol/L 3.5-5.1 N CHLORIDE (test code = CL) 107.0 mmol/L 98-107 N CARBON DIOXIDE (test code = CO2) 29.0 mmol/L 21-32 N ANION GAP (test code = GAP) 5.9 10-20 L GLUCOSE (test code = GLU) 83 mg/dL 74-106 N BLOOD UREA NITROGEN (test code = BUN) 17 mg/dL 7-18 N GLOMERULAR FILTRATION RATE (test code = GFR) > 60 mL/min See_Comment Estimated GFR by using Modified MDRD formula.Chronic kidney disease is defined as either kidney damageor GFR <60 mL/min/1.73 m2 for >3 months. [Automated message] The system which generated this result transmitted reference range: >=60. The reference range was not used to interpret this result as normal/abnormal. CREATININE (test code = CREAT) 0.70 mg/dL 0.55-1.02 N Note change in reference range due to change in reagent. BUN/CREATININE RATIO (test code = BUN/CREA) 25.0 10-20 H TOTAL PROTEIN (test code = PROT) 7.2 gram/dL 6.4-8.2 N ALBUMIN (test code = ALB) 4.5 g/dL 3.4-5.0 N GLOBULIN (test code = GLOB) 2.7 gram/dL 2.7-4.2 N ALBUMIN/GLOBULIN RATIO (test code = A/G) 1.7 0.75-1.50 H CALCIUM (test code = CA) 9.3 mg/dL 8.5-10.1 N BILIRUBIN TOTAL (test code = BILT) 0.30 mg/dL 0.0-1.0 N SGOT/AST (test code = AST) 18 IUnit/L 15-37 N SGPT/ALT (test code = ALT) 14 IUnit/L 12-78 N ALKALINE PHOSPHATASE TOTAL (test code = ALKP) 68 IUnit/L 45-117 N Note change in reference range due to change in reagent. CBC W/AUTO [id number] 13:26:00* Test Item Value Reference Range Interpretation Comme nts WHITE BLOOD CELL (test code = WBC) 8.0 K/mm3 4.5-12.5 N RED BLOOD CELL (test code = RBC) 4.44 mill/mm3 3.7-5.2 N HEMOGLOBIN (test code = HGB) 13.4 gram/dL 11.5-15.5 N HEMATOCRIT (test code = HCT) 42.0 % 36.0-46.0 N MEAN CELL VOLUME (test code = MCV) 94.6 fL 80-98 N MEAN CELL HGB (test code = MCH) 30.2 picogram 27.0-33.0 N MEAN CELL HGB CONCETRATION (test code = MCHC) 31.9 gram/dL 33.0-36.0 L RED CELL DISTRIBUTION WIDTH (test code = RDW) 12.1 % 11.6-16.2 N RED CELL DISTRIBUTION WIDTH SD (test code = RDW-SD) 42.3 fL 37.0-51.0 N PLATELET COUNT (test code = PLT) 252 K/mm3 150-450 N MEAN PLATELET VOLUME (test c ode = MPV) 10.7 fL 6.7-11.0 N NEUTROPHIL % (test code = NT%) 61.8 % 39.0-69.0 N IMMATURE GRANULOCYTE % (test code = IG%) 0.4 % 0.0-5.0 N LYMPHOCYTE % (test code = LY%) 31.5 % 25.0-55.0 N MONOCYTE % (test code = MO%) 4.8 % 0.0-10.0 N EOSINOPHIL % (test code = EO%) 1.1 % 0.0-5.0 N BASOPHIL % (test code = BA%) 0.4 % 0.0-1.0 N NUCLEATED RBC % (test code = NRBC%) 0.0 % 0-0 N NEUTROPHIL # (test code = NT#) 4.92 K/mm3 1.8-7.7 N IMMATURE GRANULOCYTE # (test code = IG#) 0.03 x10 3/uL 0-0.03 N LYMPHOCYTE # (test code = LY#) 2.51 K/mm3 1.0-5.0 N MONOCYTE # (test code = MO#) 0.38 K/mm3 0-0.8 N EOSINOPHIL # (test code = EO#) 0.09 K/mm3 0.0-0.5 N BASOPHIL # (test code = BA#) 0.03 K/mm3 0.0-0.2 N NUCLEATED RBC # (test code = NRBC#) 0.00 K/mm3 0.0-0.1 N MANUAL DIFF REQUIRED (test c ode = MDIFF) NO - US TRANSVAGINAL NON [id number] 15:49:00 [facility] DOB: 1990 Sex: F Name: BETHANY HUFF [facility] [place] : 1990 Age/S: 29 / F [address] [facility]: [id number] Loc: [place] [address] Phys: Skinny Steward MD Acct: [id number] Dis Date: Status: REG CLI PHONE #: [phone] Exam Date: 04/03/2020 1136 FAX #: [phone] Reason: PELVIC PAIN EXAMS: CPT CODE: [id number] [place] [id number] EXAM: US PELVIS TRANSABDOMINAL EXAM: US PELVIS TRANSVAGINAL DATE: 04/03/2020 10:39 AM INDICATION: PELVIC AND PERINEAL PAIN : 1990; Age: 29 years y/o Female COMPARISON: CT March 26, 2018 TECHNIQUE: Multiplanar grayscale and color Doppler ultrasound of the pelvis were obtained transabdominally and transvaginally. Transvaginal examination was performed for better evaluation of endometrium and adnexa. FINDINGS: Uterus/Myometrium: Size: 7.3 x 3.6 x 5 cm Echogenicity: Heterogeneous Masses: None. Cervix: Normal. Endometrium:Trace fluid in the upper endovaginal canal. Thickness: 0.3 cm Cysts/Masses: None. Right ovary: Size: 2.6 x 3.2 x 2.1 cm Cysts/Masses: Physiologic changes are seen. Left ovary: Size: 3.3 x 1.8 x 2.2 cm Cysts/Masses: Physiologic changes are seen. Adnexa: Normal bilateral ovarian Doppler flow. Few bilateral prominent appearing paraovarian veins is seen. Free fluid: None. IMPRESSION: 1. Nonspecific heterogeneous uterus is seen without acute findings. Few bilateral prominent appearing paraovarianveins is seen, please PAGE 1 Signed Report (CONTINUED) Name: BETHANY HUFF [facility] [place] 1990 Age/S: 29 / F [address] [place], [place] [address] Unit #: [id number] Loc: [place] [address] Phys: Skinny Steward MD Acct: [id number] Dis Date: Status: REG CLI PHONE #: [phone] Exam Date: 04/03/2020 1136 FAX #: [phone] Reason: PELVIC PAIN EXAMS: CPT CODE: [id number] [place] [id number] <Continued> correlate with pelvic congestion syndrome. 2. Trace fluid within the upper endometrial canal. at 1549 Reported and signed by: Nichelle Khoury D.O. CC: Skinny Steward MD Technologist: Ml Alfred RDMS(Jaspreet)(BR) Trnscb Date/Time: 04/03/2020 (1549) [id number] Orig Print D/T: S: 04/03/2020 (3809) Probe: [id number] PAGE 2 Signed Report- US PELVIS [id number] 15:49:00 [facility] : 1990 Sex: F Name: BETHANY HUFF [facility] : 1990 Age/S: 29 / F [address] [place] [address] Unit #: [id number] Loc: [place] [address] Phys: Skinny Steward MD Acct: [id number] Dis Date: Status: REG CLI PHONE #: [phone] Exam Date: 04/03/20204 FAX #: [phone] Reason: PELVIC AND PERINEAL PAIN EXAMS: CPT CODE: [id number] US PELVIS COMPLETE 70562 EXAM: US PELVIS TRANSABDOMINAL EXAM: US PELVIS TRANSVAGINAL DATE: 04/03/2020 10:39 AM INDICATION: PELVIC AND PERINEAL PAIN : 1990; Age: 29 years y/o Female COMPARISON: CT March 26, 2018 TECHNIQUE: Multiplanar grayscale and color Doppler ultrasound of the pelvis were obtained transabdominally and transvaginally. Transvaginal examination was performed for better evaluation of endometrium and adnexa. FINDINGS: [place] raffaele/Myometrium: Size: 7.3 x 3.6 x 5 cm Echogenicity: Heterogeneous Masses: None. Cervix: Normal. Endometrium: Trace fluid in the upper endovaginal canal. Thickness: 0.3 cm Cysts/Masses: None. Right ovary: Size: 2.6 x 3.2 x 2.1 cm Cysts/Masses: Physiologic changes are seen. Left ovary: Size: 3.3 x 1.8 x 2.2 cm Cysts/Masses: Physiologic changes are seen. Adnexa: Normal bilateral ovarian Doppler flow. Few bilateral prominent appearing paraovarian veins is seen. Free fluid: None. IMPRESSION: 1. Nonspecific heterogeneous uterus is seen without acute findings. Few bilateral prominent appearing paraovarian veins is seen, please PAGE 1 Signed Report (CONTINUED) Name: BETHANY HUFF [facility] : 1990 Age/S: 29 / F [address] [place] [address] Unit #: [id number] Loc: [place] [address] Phys: Skinny Steward MD Acct: [id number] Dis Date: Status: REG CLI PHONE #: [phone] Exam Date: 04/03/2020 1134 FAX #: [phone] Reason: PELVIC AND PERINEAL PAIN EXAMS: CPT CODE: [id number] US PELVIS COMPLETE 28500 <Continued> correlate with pelvic congestion syndrome. 2. Trace fluid within the upper endometrial canal. at 1549 Reported and signed by: Nichelle Khoury D.O. CC: Skinny Steward MD Technologist: ISIDRA Denney)(BR) Trnscb Date/Time: 04/03/2020 (1549) [id number] Orig Print D/T:S: 04/03/2020 (4163) Probe: PAGE 2 Signed Report- CTA LOW EXTREMITY [id number] 17:39:00Name: REFUGIOBETHANY HIPOLITO [facility] : 1990 Age/S: 27 / F [address] [facility] Unit #: [id number] Loc: [place] [address] Phys: Matias Paz MD Acct: [id number] Dis Date: Status: REG ER PHONE #: [phone] Exam Date: 05/19/2018 1552 FAX #: [phone] Reason: elevated dimer, hip pain EXAMS: CPT CODE: [id number] [place] [address] REASON FOR EXAM: elevated dimer, hip pain EXAM ORDER DATE: 05/19/2018 3:36 PM Ordering MStella: Matias Paz MD PROCEDURE: - CTA LOW EXTREMITYRT FINDINGS: Axial images of the abdominal aorta and bilateral lower extremities runoff were obtained with IV contrast using CT angiogram protocol. Reconstructed sagittal and coronal images from the axial data were provided. Dose modulation, iterative reconstruction, and/or weight based adjustment of the MA/KV was utilized to reduce the radiation dose to as low as reasonably achievable. Maximum intensity pixel, Volume rendered, Surface shaded rendering, and 3D reconstructed images of the abdominal aorta and bilateral lower extremities runoff were provided for interpretation. Intravenous contrast: 100cc of Omnipaque 370. IMPRESSION: Unremarkable abdominal angiogram and bilateral lower extremities runoff at 1730 Reported and signedby: Carlos Enrique Herndon M.D. CC: Matias Paz MD; Skinny Steward Technologist:Luna Fernández RT(R); Jannet CTDI: DLP: Trnscb Date/Time: 05/19/2018 (1739) [id number] Orig Print D/T: S: 05/19/2018 (1742) CTDI: DLP: PAGE 1 Signed [id number] 14:49:00* Test Item Value Reference Range Interpretation Comme nts D-DIMER (test code = DDIMER) 528.00 ng/mLFEU 0-500 HH Results called t o [id number] by RANDALL.DD 05/19/18 1449Critical results verified and read back by Nurse? YClinical Cut-off value for D-Dimer is 500 ng/mL FEU. Comment: The [employer] D-Dimer assay is intended for use asan aid in the diagnosis of venous thromboembolism (VTE)[deep vein thrombosis (DVT) or pulmonary embolism (PE)].The measurement of D-Dimer should not be used as an aid inthe diagnosis of VTE,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 Area 3.0 cm 2 Peak georges, S 1.01 m/sec Mean georges, S 0.74 m/sec VTI, S 19.8 cm Peak grad, S 4 mm Hg Mean grad, S 2 mm Hg SV 60 ml SV/bsa 33 ml/m 2 Ventricular septum Value Ref IVS, ED 0.7 cm 0.6 - 0.9 Right ventricle Value Ref RENEE, LAX 1.8 cm Pressure, S 31 mm Hg Left atrium Value Ref AP dim, ES 2.11 cm 2.70 - 3.80 AP dim, ES MM 2.4 cm 2.7 - 3.8 LA/Ao root ratio, MM 0.89 Aortic valve Value Ref Leaflet sep, MM 1.88 cm PATIENT NAME: BETHANY HUFF Peak v, S 1.28 m/sec Mean v, S 1.03 m/sec VTI, S 24.5 cm Mean grad, S 4.4 mm Hg Peak grad, S 6.6 mm Hg LVOT/AV, VTI ratio 0.81 STANISLAW, VTI 2.46 cm 2 LVOT/AV, Vpeak ratio 0.79 STANISLAW, Vmax 2.39 cm 2 Mitral valve Value Ref E-septal separation 0.8 cm E-F slope 0.15 m/sec Peak E 1.1 m/sec Peak A 0.4 m/sec Mean v, D 0.78 m/sec VTI leaflet coapt 23.7 cm Decel time 201 ms PHT 64 ms Mean grad, D 2.9 mm Hg Peak grad, D 8.0 mm Hg Peak E/A ratio 2.76 MVA, PHT 3.4 cm 2 MR peak v 4.02 m/sec Tricuspid valve Value Ref TR peak v 2.62 m/sec <=2.8 Peak RV-RA grad, S 28 mm Hg Aortic root Value Ref Root diam, ED MM 2.67 cm Ascending aorta Value Ref AAo AP diam, S 2.6 cm AAo AP diam/bsa, S 1.4 cm/m 2 Pulmonary artery Value Ref Pressure, S 27.2 mm Hg Systemic veins Value Ref Estimated CVP 3 mm Hg Conclusions Summary: Left ventricle: The cavity size is normal. Wall thickness isnormal. Systolic function is normal. The estimated ejection fraction is55-60%. Wall motion is normal; there are no regional wall motionabnormalities. Left ventricular diastolic function parameters arenormal. Prepared and electronically signed by PATIENT NAME: BETHANY HUFF Darek Fields MD04/12/2020 17:54 at 1754 PATIENT NAME: BETHANY HUFF :54:0 0V.[id number] for patient puvoXPFGYTPOZPDIQS9482-29-99V90:54:44 [facility] 2020-04-12 14:08:00 WLdxbohqplz88329506F g4DwTtDbp6eLoOgXKH68dmWVmIIcR Li38wBxNfS3N/QFp1Vyk+gzcZ0xFFdP7vC9893-48-82V47:0 8:00 [facility] Progress NoteREPORT#:[id number] REPORT STATUS: SignedDATE:04/12/20 TIME: 1408 PATIENT: BETHANY HUFF UNIT #: [id number]#: [id number] ROOM/BED: 2034ADOB: [birth year] AGE: 29 SEX: F ATTEND: Skinny Steward [facility] AUTHOR: Skinny Steward MD * ALL edits or amendments must be made on the electronic/computer document * SubjectivePatient reports: Patient reports: Yes pain controlled, Yes tolerating diet, No complaints, No fever, No headache, No nauseaComments:+ flatus, no BM yet Objective GeneralVS/I O:Last Documented: Result Date Time Pulse Ox 100 04/12 1133 B/P 108/68 04/12 1133 B/P Mean 81.2 04/12 1133 Temp 98.1 04/12 1133 Pulse 93 04/12 1133 Resp 20 04/12 1133 O2 Delivery Room air 04/11 0802 O2 Flow Rate 4 04/11 1999 Vital Signs Date Temp Pulse Resp B/P B/P Mean Pulse Ox FiO2 04/11-04/12 97.9-99.3 85-93 18-20 92-108/54-68 0.0-81.2 98-100 24 hour I O ending at 0700: 04/12 0700 04/11 1900 Intake Total 750.00 Output Total 350 1525 Balance -350 -775.00 Intake, IV 750.00 Number Voids 2 Output, Urine 350 1525 PATIENT WEIGHT: Weight (lb): 149Weight (oz): 4.05Weight (kg): 67.700 Physical ExamGeneral Appearance: alert, awake, no acute distressWound/incision: Site condition: incision intact, no drainage, no ecchymosis, no erythemaAbdomen: non-tender, soft Diagnosis, Assessment PlanFree Text A P:POD #2 - suspected intraop air embolism resulting in brief cardiac arrest pt doing well continue postop care No neurologic symptoms, CT head neg (ordered to r/o pathology due to air embolism) Echo recommended by CV surgeon prior to discharge - has been ordered await return of bowel function at 1413 RPT #:[id number] OF REPORTPRProgress Oree7544-20-23I61:08:00V.[id number] able for patient qvpnGOOLVPZTOYNCAY6832-06-47T54:13:27 [facility] 2020-04-11 17:09:00 MHvvjjsjvyu12492451i tqapmKJ1t2w6KAbHKiAI/Ce5IKW6P VZywyywDt4pdh142d8rOreKcLGV6BFaOOg6172-00-26O65:0 9:[id number] [facility] PATIENT NAME: BETHANY HUFF ADMIT DATE: 04/10/20ACCOUNT NO: [id number] ROOM NO: V.2034 AGE: 29 REPORT TYPE: OPERATIVE REPORT SEX: F DATE OF : [birth year]ADMITTING PHYSICIAN:Skinny Steward MD ATTENDING PHYSICIAN:Skinny Steward MD OPERATION DATE: 04/10/2020 PREOPERATIVE DIAGNOSIS: Intraoperative bleeding during robotic hysterectomy. POSTOPERATIVE DIAGNOSIS: Intraoperative bleeding during robotic hysterectomy. TITLE OF THE PROCEDURE: Exploration for intraoperative bleeding. SURGEON: Gabriel Smart MD LEASING AGENT: ANESTHESIA: General. OPERATIVE FINDINGS: The lower part of the aorta and iliac vessels did not showevidence of any active bleeding. There was stable hematoma in the pelvis andaround the mesenteric vessels. This was an intraoperative consult by . The patient was having a robotic hysterectomy. During theprocedure, it was noted that the patient had bleeding from a trocar placement. The patient had some deterioration in the hemodynamics. Please refer to thenotes by Dr. Steward for details. [facility]. By the time I reached the operating room. [facility] and examined the intestines. Pleaserefer to Dr. Reddy's operative note for this part of the procedure. I scrubbed during the aortic during the intraoperative procedure and evaluatedthe hematoma and the aorta and iliac vessels. There was no evidence of anyactive bleeding at this time. There was a very stable hematoma, which waswatched for almost 30 to 45 minutes and there was no change. Hence, no furtherintervention was performed by me. Dictated By: Gabriel Smart MD WT: OP:V.[facility]/ROXANNA/NTSDD: 04/11/2020 17:09:54DT: 04/11/2020 21:25:37Conf#: [id number]/DID#: [id number] Authenticated by Gabriel Smart MD, FACS On 04/13/2020 09:39:21 AM PATIENT NAME: REFUGIOBETHANY at 0939 PATIENT NAME: REFUGIOBETHANY lvvztf2456-54-21O14:25:00V.[id number] lable for patient noelBOUAFGJOYBGXJW3532-89-07O76:39:51 [facility] 2020-04-11 16:33:00 ROwvzlkivlj24023107V w84ogJTl+eBk9AURw5w6URyTm6lQf 5o6y8CZXWcmKg3VonSTTVU61Gh0reN0hI/9365-73-08N13:3 3:[id number] [facility] PATIENT NAME: BETHANY HUFF ADMIT DATE: 04/10/20ACCOUNT NO: [id number] ROOM NO: 2034 AGE: 29 REPORT TYPE: OPERATIVE REPORT SEX: F DATE OF : [birth year]ADMITTING PHYSICIAN:Skinny Steward MD ATTENDING PHYSICIAN:Skinny Steward MD OPERATION DATE: DICTATION ENDS HERE Dictated By: Gabriel Smart MD WT: OP:VSOBEIDA/NTSDD: 04/11/2020 16:33:44DT: 04/11/2020 20:52:08Conf#: [id number]/DID#: [id number] Authenticated by Gabriel Smart MD, FACS On 04/13/2020 09:39:20 AM at 0939 PATIENT NAME: BETHANY HUFF nyxtyl2171-19-54X21:52:00V.[id number] lable for patient dmwkCNRRSZJHPPTRVV3674-93-21T38:39:51 [facility] 2020-04-11 15:35:00 QJfpvimtcvk72744442E sd3D+1EmGbxMJ3TJM8ckM0xma1hai TN39OLia8mkum+94SzW5qRN2SSJKYwzMh55568-10-62N35:3 5:[id number] [facility] PATIENT NAME: BETHANY HUFF ADMIT DATE: 04/10/20ACCOUNT NO: [id number] ROOM NO: 2034 AGE: 29 REPORT TYPE: OPERATIVE REPORT SEX: F DATE OF : [birth year]ADMITTING PHYSICIAN:Skinny Steward MD ATTENDING PHYSICIAN:Skinny Steward MD OPERATION DATE: 04/10/2020 PREOPERATIVE DIAGNOSES:1. Pelvic pain.2. Dysmenorrhea. POSTOPERATIVE DIAGNOSES:1. Pelvic pain.2. Dysmenorrhea. PROCEDURES:1. Laparoscopy converted to exploratory laparotomy.2. Total abdominal hysterectomy.3. Left salpingo-oophorectomy.4. Right salpingectomy.5. Cystoscopy. SURGEON: Skinny Steward MD LEASING AGENT: Dania Clarke MD ANESTHESIA: General endotracheal anesthesia. INTRAOPERATIVE CONSULTATIONS:1. General surgery, Darek Reddy MD2. Cardiovascular surgery. Gabriel Smart MD ESTIMATED BLOOD LOSS: 750 mL. SPECIMENS REMOVED: Uterus, fallopian tubes, and left ovary. COMPLICATIONS: Suspected laceration in a mesenteric vessel with resulting suspected CO2 air embolism. INTRAOPERATIVE FINDINGS:1. Suspected laceration and mesenteric vessel upon primary trocar insertionwith resulting CO2 air embolism with need for a brief CPR resuscitation. 2. Laparoscopy converted to laparotomy with approximately 500 mL of hemoperitoneum noted. Intraoperative consultations with general surgery andvascular surgery did not reveal any source of continued active bleeding and anybowel injury or major vessel injury. The vascularity of the bowel was confirmedwith ICG fluorescence by the general surgeon. PATIENT NAME: BETHANY HUFF 3. Grossly normal uterus, bilateral fallopian tubes, and right ovary.4. Left ovary with foci of endometriosis4. 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 PROCEDURE IN DETAIL: The patient was taken to the operating room, where generalanesthesia was administered. The patient was placed in low lithotomy positionwith the arms tucked. The patient was prepped and draped in the usual sterilefashion. A Ely catheter was inserted. A sterile speculum was then placedinto the vagina and the anterior lip of the cervix grasped with a single-toothtenaculum. The uterus was sounded to approximately 8 cm. A large sized VCareuterine manipulator was then placed into the uterus and the colpotomy cup wasplaced snugly around the cervix. Attention was then turned to the abdomen wherethe supraumbilical area was injected with 3 mL of 0.25% Marcaine withepinephrine. An 8-mm skin incision was made. The abdominal wall was liftedaway from the underlying structures and an 8 mm trocar was advanced into theperitoneal cavity under direct laparoscopic visualization using a 0-degree scopeand a blunt trocar tip. The visual entry technique was used, visualizing thelayers of the abdominal wall. The trocar obturator was removed and the camerawas advanced and intraabdominal entry was confirmed and at that point, the CM1fxavpdepjptf was started. However, immediately upon gas insufflation, thepatient's vitals became unstable with bradycardia and hypotension noted byanesthesia. The insufflation was immediately stopped and on stopping theinsufflation, there was blood noted to flow back up into the trocar sleeve. Atthis point, I was notified by anesthesia that the patient was progressivelygoing into cardiopulmonary arrest and CPR was immediately initiated. Due to theclinical picture and the blood in the trocar sleeve as well as the patient'scardiovascular status, there was a suspicion for major vessel injury andconversion to laparotomy was started. General surgery, Dr. Darek Reddy andcardiovascular surgery, Dr. Gabriel Smart, were also consulted at this time.A Pfannenstiel skin incision was made with the scalpel followed by incision ofthe fascia and separation of the rectus muscles and bluntly entering theperitoneal cavity. Upon entry to the peritoneal cavity, approximately 500 mL ofhemoperitoneum was identified, but no active source of active bleeding wasnoted. At this point, the general surgeon had arrived and the skin incision wasextended in a vertical fashion to the level approximately 5 cm above theumbilicus to better expose the major blood vessels, again no source of activebleeding was identified. There was a laceration noted in the mesentery of thetransverse colon and small hematoma formations noted along the transverse colonand retroperitoneum but the hematoma was not expanding. The aorta and common iliac vessels were identified and there were no injuries or bleeding noted. Due to the amount of intraperitoneal blood that was found on exploratory laparotomy, not being consistent with the patient's clinical picture, the suspicion was that a CO2 air embolism had occurred, causing the patient's cardiovascular arrest. CPR was continued for a period of approximately 4 to 5 minutes, at which time a good pulse was identified and the patient's blood pressure normalized. Her vital signs remained stable for the remainder of the surgery. At this point, a thorough evaluation of the bowel and mesenteric vessels by the general surgeon revealed no other injuries and no sources of continued active bleeding. The transverse colon vascularity was evaluated by the general surgeons using PCG fluorescence and the vascularity was found to be intact. The cardiovascular surgeon then arrived and performed a thorough evaluation of the major blood vessels including opening of the retroperitoneal space and exposure of the descending aorta and iliac vessels. PATIENT NAME: BETHANY HUFF There were no injuries noted and no areas of active bleeding or expansion of hematoma was identified. At this point, the patient was hemodynamically stable and we proceeded with abdominal hysterectomy. The round ligament on the patient's left side was identified and picked up witha Holabird clamp and doubly suture ligated with 0 Vicryl suture and transectedwith excellent hemostasis noted. A window was created in the posterior broadligament and the infundibulopelvic ligament on the left side was clamped, cut,and ligated with 0 Vicryl suture with excellent hemostasis noted. The anteriorbroad ligament was then opened with sharp dissection, dissecting the bladder offof the cervix and uterus anteriorly and the uterine artery on the left side wasskeletonized and then doubly clamped and suture ligated with 0 Vicryl suturewith excellent hemostasis noted. Attention was then turned to the right side,where the round ligament was identified, ligated, and transected in a similarfashion. The mesosalpinx was then ligated and transected followed bytransection of the uteroovarian ligament, thus removing the right fallopian tubeand keeping the right ovary in place. These pedicles were suture ligated with 0Vicryl suture with excellent hemostasis noted. The remaining anterior broadligament was opened and was dissected off of the uterus and cervix anteriorlyand the right uterine artery was skeletonized and doubly clamped and sutureligated with 0 Vicryl suture. The dissection was then serially taken down alongthe edge of the cervix with serial clamps and suture ligations until the levelof the colpotomy cup was reached. At this point, the monopolar cautery was usedto proceed with the colpotomy in a circumferential fashion following thedemarcation of the colpotomy cup. Once the colpotomy was completed at thecervicovesical junction, the uterus and cervix, and bilateral fallopian tubes,and left ovary were removed. The vaginal cuff was closed with a series ofmultiple qjgyna-wk-aiatq stitches, first along the right vaginal cuff angle andtransfixing to the ipsilateral uterosacral ligament and then the left vaginalcuff angle and then the remainder of the cuff was closed with 4 additional 0Vicryl gembkc-dq-sqjel stitches. The pelvis was irrigated and excellenthemostasis was noted at the vaginal cuff and throughout all the pedicles. Atthe end of the hysterectomy, the bladder was filled retrograde through the Foleycatheter and was inspected and noted to be intact. There was no leakage ofsaline noted into the peritoneal cavity. A cystoscopy was then performed and noinjuries were noted to the bladder. An incidental finding of 2 right ureteralorifices were identified, which both appeared patent with a good efflux of urineas well as a patent left ureteral orifice was identified. Following completionof the cystoscopy, a new Ely catheter was placed. Attention was then turnedback to the abdomen, at which time the cardiovascular surgeon returned to theoperating room to reevaluate the intraabdominal vessels and areas of previoushematoma formation. There was no active bleeding noted in any of these sitesand all areas of hematoma formation remained stable. Surgicel fibrillar wasplaced in the retroperitoneal area and a transverse colon mesentery. The bowelwas again inspected and no areas of bleeding noted and excellent hemostasis wasnoted throughout the abdominal cavity. At this point, the peritoneum was closedwith 2-0 Vicryl running suture. The fascia was closed with 0 PDS in a runningfashion. An x-ray of the abdomen was obtained at this point to ensure noretaining laparotomy sponges or instruments due to the conversion fromlaparoscopy to laparotomy and the x-ray showed no evidence of any retainedinstruments or sponges. The skin was closed with surgical lavelle. Theumbilical trocar site was closed with 4-0 Monocryl and Dermabond. The patientwas awoken from general anesthesia and was transferred first to recovery room instable condition and then to the intensive care unit for further postoperative PATIENT NAME: BETHANY HUFF monitoring. Dr. Clarke assisted with visualization, retraction, hemostasis,suturing, suction and irrigation during the procedure. Dictated By: Skinny Steward MD WT: OP:V.HIM/TAWBA/NTSDD: 04/11/2020 15:35:43DT: 04/11/2020 20:32:56Conf#: [id number]/DID#: [id number] Authenticated and Edited by Skinny Steward On 04/12/20 11:15:11 PM at 2317 PATIENT NAME: BETHANY HUFF fauykc9270-97-48L89:32:00V.[id number] lable for patient bjugSMJBIMUXPQEASK8505-87-44B96:17:44 [facility] 2020-04-11 14:25:00 WPfhxjipkpx24569622c ILSU3kIsSD3JBL9yTQ9dGVEsbPZl9 fq4qnIrRnGLwt+EDmm0QalGb94uAIQ/O5k9337-48-00L49:2 5:00 [facility] Progress NoteREPORT#:[id number] REPORT STATUS: SignedDATE:04/11/20 TIME: 1425 PATIENT: BETHANY HUFF UNIT #: [id number]#: [id number] ROOM/BED: 2034-ADOB: [birth year] AGE: 29 SEX: F ATTEND: Skinny Steward MDADM AUTHOR: Skinny Steward MD * ALL edits or amendments must be made on the electronic/computer document * SubjectivePatient reports: Patient reports: Yes pain controlled, Yes tolerating diet, No complaints, No fever, No headache, No nausea, No vaginal bleeding Objective GeneralVS/I O:Last Documented: Result Date Time Pulse Ox 98 04/11 1136 B/P 99/64 04/11 1136 B/P Mean 75.5 04/11 1136 Temp 98.1 04/11 1136 Pulse 85 04/11 1136 Resp 17 04/11 1136 O2 Delivery Room air 04/11 0802 O2 Flow Rate 4 04/11 1999 Vital Signs Date Temp Pulse Resp B/P B/P Mean Pulse Ox FiO2 04/10-04/11 96.3-98.2 61-96 11-40 82-130/46-73 58-82 96-100 24 hour I O ending at 0700: 04/11 0700 04/10 1900 Intake Total 2405.00 Output Total 1175 Balance 1230.00 Intake, IV 1925.00 Intake, Oral 480 Output, Urine 1175 PATIENT WEIGHT: Weight (lb): 149Weight (oz): 4.05Weight (kg): 67.700 Physical ExamGeneral Appearance: alert, awake, no acute distress, conversantWound/incision: Site condition: dressing clean dryAbdomen: non-tender, soft ResultsFindings/Data:Laboratory Tests 04/11 04/11 04/10 0819 0143 1951 Chemistry Sodium (136 - 145 mmol/L) 137 137 140 Potassium (3.5 - 5.1 mmol/L) 3.6 3.8 3.6 Chloride (98 - 107 mmol/L) 110.0 H 113.0 H 115.0 H Carbon Dioxide (21 - 32 mmol/L) 26.0 22.0 23.0 Anion Gap (10 - 20) 4.6 L 5.8 L 5.6 L BUN (7 - 18 mg/dL) 8 8 9 Creatinine (0.55 - 1.02 mg/dL) 0.50 L 0.50 L 0.50 L Glomerular Filtr Rate (>=60 mL/min) > 60 > 60 > 60 BUN/Creatinine Ratio (10 - 20) 15.1 15.7 19.1 Glucose (74 - 106 mg/dL) 108 H 122 H 152 H Calcium (8.5 - 10.1 mg/dL) 7.8 L 7.2 L 7.6 L Ionized Calcium Dotty (1.12 - 1.32 mmol/L) 1.19 Phosphorus (2.5 - 4.9 mg/dL) 3.4 Total Bilirubin (0.0 - 1.0 mg/dL) 0.60 0.50 AST (15 - 37 IUnit/L) 32 29 ALT (12 - 78 IUnit/L) 18 17 Total Alk Phosphatase (45 - 117 IUnit/L) 44 L 40 L Total Protein (6.4 - 8.2 gram/dL) 5.2 L 4.8 L Albumin (3.4 - 5.0 g/dL) 3.0 L 2.8 L Globulin (2.7 - 4.2 gram/dL) 2.2 L 2.0 L Albumin/Globulin Ratio (0.75 - 1.50) 1.4 1.4 Laboratory Tests 04/11 Coagulation INR (0.8 - 1.2) 1.2 PTT ([place]) (23.0 - 37.0 seconds) 27.2 PT Patient/Control Mix (9.0 - 14.0 seconds) 14.0 Fibrinogen (200 - 400 mg/dL) 268 186 L Laboratory Tests 04/11 Hematology WBC (4.5 - 12.5 K/mm3) 13.0 H 16.1 H 21.9 H RBC (3.7 - 5.2 mill/mm3) 3.54 L 3.65 L 3.80 Hgb (11.5 - 15.5 gram/dL) 10.7 L 11.1 L 12.1 Hct (36.0 - 46.0 %) 33.0 L 34.8 L 36.3 MCV (80 - 98 fL) 93.2 95.3 95.5 MCH (27.0 - 33.0 picogram) 30.2 30.4 31.8 MCHC (33.0 - 36.0 gram/dL) 32.4 L 31.9 L 33.3 RDW (11.6 - 16.2 %) 12.7 12.6 12.6 RDW Std Deviation (37.0 - 51.0 fL) 43.6 43.9 44.0 Plt Count (150 - 450 K/mm3) 154 168 169 MPV (6.7 - 11.0 fL) 11.0 10.8 10.7 Neut % (Auto) (39.0 - 69.0 %) 78.0 H 91.5 H Lymph % (Auto) (25.0 - 55.0 %) 15.7 L 4.5 L Fajardo % (Auto) (0.0 - 10.0 %) 5.8 3.5 Eos % (Auto) (0.0 - 5.0 %) 0.1 0.0 Baso % (Auto) (0.0 - 1.0 %) 0.1 0.1 Neut # (Auto) (1.8 - 7.7 K/mm3) 10.17 H 14.69 H 20.36 H Lymph # (Auto) (1.0 - 5.0 K/mm3) 2.05 0.73 L 0.58 L Fajardo # (Auto) (0 - 0.8 K/mm3) 0.76 0.56 0.86 H Eos # (Auto) (0.0 - 0.5 K/mm3) 0.01 0.00 0.00 Baso # (Auto) (0.0 - 0.2 K/mm3) 0.01 0.02 0.04 Add Manual Diff NO YES Total Counted (#CELLS) 115 Seg Neutrophils % (39 - 69 %) 79.1 H Band Neutrophils % (0 - 10 %) 14.8 H Lymphocytes % (Manual) (25 - 55 %) 0.9 L Monocytes % (Manual) (0 - 10 %) 5.2 Eosinophils % (Manual) (0.0 - 5.0 %) 0 Basophils % (Manual) (0 - 1.0 %) 0 Nucleated RBC % (0 - 0 %) 0.0 0.0 0.0 Metamyelocytes (0 - 0 %) 0 Myelocytes (0.0 - 0.0 %) 0 Promyelocytes (0 - 0 %) 0 Nucleated RBCs # (Man) (0.0 - 0.1 K/mm3) 0.00 0.00 0.00 Reactive Lymphocytes (%) 0 Immature Blood Cells (0 - 0 %) 0 Platelet Estimate ADEQUATE Plt Morphology Comment NORMAL Diagnosis, Assessment PlanFree Text A P:POD #1 - suspected intraop air embolism resulting in brief cardiac arrest continue postop care advance diet as tolerated pt trasferred out of ICU today at 1428 RPT #:[id number] OF REPORTPRProgress Xoqp3009-91-25L63:25:00V.FPFW00855041-8052VUUfrqm able for patient fkspYSAVWZQYQCOLYS3024-65-49L31:28:43 [facility] 2020-04-10 21:23:00 WXdedsknhjq05661131Q OEl7EmPz3hGa/4ut8s8aWBTNG+Girish +iX9lYAcVcKSr+Zw63Z82PINJ7FHYGJuWF0491-51-31C55:2 3:00 [facility])Critical Care Consult NoteREPORT#:[id number] REPORT STATUS: SignedDATE:04/10/20 TIME: 2122 PATIENT: BETHANY HUFF UNIT #: [id number]#: [id number] [facility] AGE: 29 SEX: F ATTEND: Skinny Steward [facility] AUTHOR: Mark Cody DO * ALL edits or amendments must be made on the electronic/computer document * History of Present Illness HPIReason for consult:S/P CPRChief complaint:CARDIAC ARRESTHPI:Patient is a 29-year-old female presented to the ICU for cardiac arrest. Patient was undergoing operative procedure when according to procedural notes, trocar was inserted and there is a suspected laceration in the mesenteric vesselpossibly resulting in air embolism. This required approximately 6 minutes of CPR resuscitation and laparoscopy was converted to open laparotomy and approximately 500 cc of blood was found in the peritoneum. Intraoperative consultation with both general surgery and vascular surgery did not show any source of active bleeding or bowel injury. According to procedure notes as well, there is no evidence of urologic damage. Patient is currently in the ICU and states that she does have some pain to her abdomen as well as her chest but denies any other related symptoms. Patient states that she has no past medical problems as well and does not take any medications. History - Adult longitudinalAdditional medical history:ovarian cyst on left ovaryAdditional surgical history:D C, laproscopic surgery to remove ovarian cystAlcohol use: Denies EtOH useDrug use: Denies recreational drugsSmoking status: Smoking status for patients 13 years old or older: Current every day smoker Date last smoked: 04/06/20Other social history: Local residentAllergies:Coded Allergies:No Known Allergies (05/19/18) Review of Systems ROSAdditional notes:Constitutional: Denies: Fatigue, Malaise, Chills, Fever, EYES: No redness, HENT: Negative for ear pain, sore throat, rhinorrhea, congestionRespiratory: Denies: Dyspnea on exertion, Shortness of breath, Cough, non-productive,Cardiovascular: Denies: Dyspnea on exertion, Palpitations. Positive for chest painGI: Denies: Diarrhea, Nausea, Vomiting. Positive for abdominal painGU: Negative for dysuria, urinary frequency changes. NEURO: No focal deficit, no headache, no lightheadedness/dizzinessHEM: No bleeding/bruising, MSK: Denies: Back pain. no neck painSKIN: Denies rash, PSYCH: Denies suicidal ideation, anxietyAll systems rev neg: except as marked Objective Physical ExamVS/I O:Last Documented: Result Date Time Pulse Ox 100 04/10 1752 B/P 103/56 04/10 175 O2 Delivery Simple mask 04/11 1751 O2 Flow Rate 10 04/10 175 Pulse 61 04/10 1752 Resp 18 04/10 175 Temp 36.7 04/10 1703 Patient Weight and BMI Weight (kg): 67.700 BMI: 22.0 Free Text Obj NotesFree Text Obj Notes:GENERAL/CONST: Awake, Alert, No acute distress, CooperativeEYES: EOM intactHENT: Airway patent, Mucous membranes moistRESP/CHEST: Breath sounds NL, Breath sounds = bilat, No respiratory distress, normal respiratory rateCARDIOVASCULAR: Heart rate NL, Regular rhythm, Heart sounds NLABDOMEN/GI : Abdomen/GI Soft, No guarding, negative Levy's sign, negative McBurney's point. Surgical scars clean dry and intact. Mild diffuse tendernessto abdomenMS: Back Inspection NL, Non-tenderMS Lower Extrem: no pitting edema to BLE. Legs are symmetric.SKIN No rash, Warm, DryNEUROLOGIC: Oriented X3, Speech NL, CN II-XII intact Diagnosis, Assessment Plan Diagnosis, Assessment PlanConsultants: gynecology (DR. STEWARD)Critical care time: Minutes: 45 Patient was critically ill due to:CARDIAC ARREST My treatment and management were:S/P CARDIAC ARREST MANAGEMENT Code Status/Resusc. DiscussionCode status: full codeFree text DxA P:S/p Cardiac Arrest- not TTM candidate- Cardiac monitoring overnight- Trend electrolytes- Pain management- Leukocytosis suspected to be reactionary- Strict I Os R salpingectomy-Follow recommendations of gynecology-Trend H H Quality: Gen Med Crit Care Current MedicationsCurrent medication review:I attest that the foregoing medication list in the medical record is true, accurate, and complete to the best of my knowledge. at 2144 RPT #:[id number] OF REPORTNZLshuobphujax1001-07-28V84:23:00V.PDOC2 [id number] for patient fjrnRHADSISLXTHVAR9877-70-37I53:44:51 [facility] 2020-04-10 21:23:00 [id number] HYCrTV2sjqluf487SS42FZx/nK+YQ Jx4buBPT5w3J3aUoTVY7xkX9TqpXC+a18P8224-88-21M85:2 3:00 [facility] HospitalCritical Care Consult NoteREPORT#:[id number] REPORT STATUS: SignedDATE:04/10/20 TIME: 2122 PATIENT: BETHANY HUFF UNIT #: [id number]#: [id number] ROOM/BED: 2034-ADOB: [birth year] AGE: 29 SEX: F ATTEND: Skinny Steward [facility] AUTHOR: Mark Cody DO * ALL edits or amendments must be made on the electronic/computer document * Mark Cody 04/10/202122:History of Present Illness HPIReason for consult:S/P CPRChief complaint:CARDIAC ARRESTHPI:Patient is a 29-year-old female presented to the ICU for cardiac arrest. Patient was undergoing operative procedure when according to procedural notes, trocar was inserted and there is a suspected laceration in the mesenteric vesselpossibly resulting in air embolism. This required approximately 6 minutes of CPR resuscitation and laparoscopy was converted to open laparotomy and approximately 500 cc of blood was found in the peritoneum. Intraoperative consultation with both general surgery and vascular surgery did not show any source of active bleeding or bowel injury. According to procedure notes as well, there is no evidence of urologic damage. Patient is currently in the ICU and states that she does have some pain to her abdomen as well as her chest but denies any other related symptoms. Patient states that she has no past medical problems as well and does not take any medications. History - Adult longitudinalAdditional medical history:ovarian cyst on left ovaryAdditional surgical history:D C, laproscopic surgery to remove ovarian cystAlcohol use: Denies EtOH useDrug use: Denies recreational drugsSmoking status: Smoking status for patients 13 years old or older: Current every day smoker Date last smoked: 04/06/20Other social history: Local residentAllergies:Coded Allergies:No Known Allergies (05/19/18) Review of Systems ROSAdditional notes:Constitutional: Denies: Fatigue, Malaise, Chills, Fever, EYES: No redness, HENT: Negative for ear pain, sore throat, rhinorrhea, congestionRespiratory: Denies: Dyspnea on exertion, Shortness of breath, Cough, non-productive,Cardiovascular: Denies: Dyspnea on exertion, Palpitations. Positive for chest painGI: Denies: Diarrhea, Nausea, Vomiting. Positive for abdominal painGU: Negative for dysuria, urinary frequency changes. NEURO: No focal deficit, no headache, no lightheadedness/dizzinessHEM: No bleeding/bruising, MSK: Denies: Back pain. no neck painSKIN: Denies rash, PSYCH: Denies suicidal ideation, anxietyAll systems rev neg: except as marked Objective Physical ExamVS/I O:Last Documented: Result Date Time Pulse Ox 100 04/10 1752 B/P 103/56 04/10 175 O2 Delivery Simple mask 04/11 1751 O2 Flow Rate 10 04/10 175 Pulse 61 04/10 175 Resp 18 04/10 175 Temp 36.7 04/10 1703 Patient Weight and BMI Weight (kg): 67.700 BMI: 22.0 Free Text Obj NotesFree Text Obj Notes:GENERAL/CONST: Awake, Alert, No acute distress, CooperativeEYES: EOM intactHENT: Airway patent, Mucous membranes moistRESP/CHEST: Breath sounds NL, Breath sounds = bilat, No respiratory distress, normal respiratory rateCARDIOVASCULAR: Heart rate NL, Regular rhythm, Heart sounds NLABDOMEN/GI : Abdomen/GI Soft, No guarding, negative Levy's sign, negative McBurney's point. Surgical scars clean dry and intact. Mild diffuse tendernessto abdomenMS: Back Inspection NL, Non-tenderMS Lower Extrem: no pitting edema to BLE. Legs are symmetric.SKIN No rash, Warm, DryNEUROLOGIC: Oriented X3, Speech NL, CN II-XII intact Diagnosis, Assessment Plan Diagnosis, Assessment PlanConsultants: gynecology (DR. STEWARD)Critical care time: Minutes: 45 Patient was critically ill due to:CARDIAC ARREST My treatment and management were:S/P CARDIAC ARREST MANAGEMENT Code Status/Resusc. DiscussionCode status: full codeFree text DxA P:S/p Cardiac Arrest- not TTM candidate- Cardiac monitoring overnight- Trend electrolytes- Pain management- Leukocytosis suspected to be reactionary- Strict I Os R salpingectomy-Follow recommendations of gynecology-Trend H H Quality: Gen Med Crit Care Current MedicationsCurrent medication review:I attest that the foregoing medication list in the medical record is true, accurate, and complete to the best of my knowledge. Vandana Bahena 04/11/20 1700:Attestations Physician AttestationAgree w/findings plan:Patient seen and examined agree with the findings documented above Status post cardiac arrest patient had a CPRRecovered completely postoperatively underwent abdominal hysterectomyNow off of fluids never required any pressors at 2144 RPT #:[id number] OF REPORTFLRmatlgnckjrs4495-97-20N63:23:00V.PDOC2 [id number] for patient ztezNCLKOGKFXLAVRI4839-07-44R72:01:20 [facility] 2020-04-10 21:23:00 PWhfdwtmjmh77390900g 7iPw79lzZXjDL+umRPj1ZfVNN0EDT zIyGEnz/0mz66wTDB+etGfgE1a5vkmaDIg1305-98-44R54:2 3:00 [facility] ([facility])Critical Care Consult NoteREPORT#:[id number] REPORT STATUS: SignedDATE:04/10/20 TIME: 2122 PATIENT: BETHANY HUFF UNIT #: [id number]#: [id number] ROOM/BED: 2034ADOB: [birth year] AGE: 29 SEX: F ATTEND: Skinny Steward [facility] AUTHOR: Mark Cody DO * ALL edits or amendments must be made on the electronic/computer document * Mark Cody 04/10/202122:History of Present Illness HPIReason for consult:S/P CPRChief complaint:CARDIAC ARRESTHPI:Patient is a 29-year-old female presented to the ICU for cardiac arrest. Patient was undergoing operative procedure when according to procedural notes, trocar was inserted and there is a suspected laceration in the mesenteric vesselpossibly resulting in air embolism. This required approximately 6 minutes of CPR resuscitation and laparoscopy was converted to open laparotomy and approximately 500 cc of blood was found in the peritoneum. Intraoperative consultation with both general surgery and vascular surgery did not show any source of active bleeding or bowel injury. According to procedure notes as well, there is no evidence of urologic damage. Patient is currently in the ICU and states that she does have some pain to her abdomen as well as her chest but denies any other related symptoms. Patient states that she has no past medical problems as well and does not take any medications. History - Adult longitudinalAdditional medical history:ovarian cyst on left ovaryAdditional surgical history:D C, laproscopic surgery to remove ovarian cystAlcohol use: Denies EtOH useDrug use: Denies recreational drugsSmoking status: Smoking status for patients 13 years old or older: Current every day smoker Date last smoked: 04/06/20Other social history: Local residentAllergies:Coded Allergies:No Known Allergies (05/19/18) Review of Systems ROSAdditional notes:Constitutional: Denies: Fatigue, Malaise, Chills, Fever, EYES: No redness, HENT: Negative for ear pain, sore throat, rhinorrhea, congestionRespiratory: Denies: Dyspnea on exertion, Shortness of breath, Cough, non-productive,Cardiovascular: Denies: Dyspnea on exertion, Palpitations. Positive for chest painGI: Denies: Diarrhea, Nausea, Vomiting. Positive for abdominal painGU: Negative for dysuria, urinary frequency changes. NEURO: No focal deficit, no headache, no lightheadedness/dizzinessHEM: No bleeding/bruising, MSK: Denies: Back pain. no neck painSKIN: Denies rash, PSYCH: Denies suicidal ideation, anxietyAll systems rev neg: except as marked Objective Physical ExamVS/I O:Last Documented: Result Date Time Pulse Ox 100 04/11 1751 B/P 103/56 04/11 1751 O2 Delivery Simple mask 04/11 1751 O2 Flow Rate 10 04/10 175 Pulse 61 04/10 175 Resp 18 04/11 1751 Temp 36.7 04/10 1703 Patient Weight and BMI Weight (kg): 67.700 BMI: 22.0 Free Text Obj NotesFree Text Obj Notes:GENERAL/CONST: Awake, Alert, No acute distress, CooperativeEYES: EOM intactHENT: Airway patent, Mucous membranes moistRESP/CHEST: Breath sounds NL, Breath sounds = bilat, No respiratory distress, normal respiratory rateCARDIOVASCULAR: Heart rate NL, Regular rhythm, Heart sounds NLABDOMEN/GI : Abdomen/GI Soft, No guarding, negative Levy's sign, negative McBurney's point. Surgical scars clean dry and intact. Mild diffuse tendernessto abdomenMS: Back Inspection NL, Non-tenderMS Lower Extrem: no pitting edema to BLE. Legs are symmetric.SKIN No rash, Warm, DryNEUROLOGIC: Oriented X3, Speech NL, CN II-XII intact Diagnosis, Assessment Plan Diagnosis, Assessment PlanConsultants: gynecology (DR. STEWARD)Critical care time: Minutes: 45 Patient was critically ill due to:CARDIAC ARREST My treatment and management were:S/P CARDIAC ARREST MANAGEMENT Code Status/Resusc. DiscussionCode status: full codeFree text DxA P:S/p Cardiac Arrest- not TTM candidate- Cardiac monitoring overnight- Trend electrolytes- Pain management- Leukocytosis suspected to be reactionary- Strict I Os R salpingectomy-Follow recommendations of gynecology-Trend H H Quality: Gen Med Crit Care Current MedicationsCurrent medication review:I attest that the foregoing medication list in the medical record is true, accurate, and complete to the best of my knowledge. Vandana Bahena 04/11/20 1700:Attestations Physician AttestationAgree w/findings plan:Patient seen and examined agree with the findings documented above Status post cardiac arrest patient had a CPRRecovered completely postoperatively underwent abdominal hysterectomyNow off of fluids never required any pressors at 2144 at 1701 RPT #:[id number] OF REPORTIYSqqoroufbtug9006-41-35S81:23:00V.PDOC2 [id number] for patient kxyzZNQZHCMMKLETCZ2121-74-33P24:01:30 [facility] 2020-04-10 17:29:00 FBvguxxftxb57598004x EjToCc82xiOYj/qicfUB3xQJan2HP QIAZPkyGWgUty97mfqqymL5hpp1DNBOqi+3984-05-40S57:2 9:00 [facility] HospitalBrief Op NoeREPORT#:[id number] REPORT STATUS: SignedDATE:04/10/20 TIME: 1729 PATIENT: BETHANY HUFF UNIT #: [id number]#: [id number] ROOM/BED:: 90 AGE: 29 SEX: F ATTEND: Skinny Steward [facility] AUTHOR: Skinny Steward MD * ALL edits or amendments must be made on the electronic/computer document * Op/Inv Proc Note - BriefPre-procedure diagnosis:1. Pelvic pain2. DysmenorrheaPost-procedure diagnosis: same as pre procedure dxProcedures performed:1. Laparoscopy converted to exploratory laparotomy2. TAH3. LSO4. R salpingectomy5. CystoscopyPrimary Surgeon:IvánAssistant(s): Massimoesthesia: general anesthesiaFindings:1. suspected laceration in mesenteric vessel upon primary trochar insertion withresulting air embolism with need for brief CPR resuscitation2. laparoscopy converted to laparotomy - approx 500cc hemoperitomeum noted. Intraoperative consultations with general surgery and vascular surgery did not reveal any source of continued active bleeding and any bowel injury or major vessel injury. Vascularity of bowel confirmed by ICG fluorescence by general surgeon.3. grossly nl uterus, tubes, ovaries4. 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 (all patent) Complications: suspected laceration in mesenteric gvessel with resulting suspected air embolismEstimated blood loss in ml's: 750Specimens removed/altered: uterus, tubes, L ovary at 1811 RPT #:[id number] OF REPORTOPOperative fxzimr3418-21-72I19:29:00V.KOTI49457432-8672KNIji ilable for patient rsezKQBCSWVIYLGHPJ3669-61-27U35:11:15 [facility] 2018-05-19 11:42:00 YRtpaxsiupj68977231T xOpVA8jiXsLT6Q5adyaFpTUL4FBxK P8a6dxfbfVclG3wqelsSeoH9/run724Y2A1950-27-54U96:4 2:[id number] [facility] PATIENT NAME: BETHANY HUFF ADMIT DATE: 05/19/18ACCOUNT NO: [id number] ROOM NO: AGE: 27 REPORT TYPE: VASCULAR ULTRASOUND. SEX: F DATE OF : [birth year]ADMITTING PHYSICIAN: ATTENDING PHYSICIAN: RIGHT LOWER EXTREMITY VENOUS DOPPLER DATE OF STUDY: 05/19/2018 INTERPRETATION:Spontaneous and phasic blood flow is seen in the right common femoral,superficial femoral, popliteal, posterior tibial and greater saphenous veins. All the above mentioned veins augment adequately. All the above mentioned veinsare adequately compressible without any evidence of echogenic material in thelumen suggestive of thrombus. IMPRESSION: No evidence of deep venous thrombosis in the right lower extremity on thisstudy. Xkwkfxghukziz by Loc Nuñez MD On 05/25/2018 04:20:40 PM at 1621 PATIENT NAME: BETHANY HUFF : 05/19/18 1142 Loc Nuñez MD tdt: 05/19/18 1533 BLDDIDiagnostic qclsexl2747-86-11B16:33:00V.BME57100621-1389UONwe ilable for patient cdkgIOVKLXFPIPCISG5442-75-27P57:21:55 [facility] 2018-05-19 10:04:00 CAgafjgmval12810844w vrtunXKsvzWw94gI3TKY3rYEn67Hf 4j/PX0tbqbLGFArnKhooBHHNLMutZbujxM8831-82-71N01:0 4:00 [facility] ([facility] PROVID[facility] REPORTREPORT#:[id number] REPORT STATUS: SignedDATE:05/19/18 TIME: 1004 PATIENT: BETHANY HUFF UNIT #: [id number]#: [id number] ROOM/BED:AGE: 27 SEX: F PCP PHYS: Skinny Steward MDSERVICE AUTHOR: Matias Paz MD * ALL edits or amendments must be made on the electronic/computer document * HPI-Extremity Prob Lower GeneralConfirmed Patient YesInitial Greet Date/Time 05/19/18 0843 PresentationChief Complaint Leg problem RHx Obtained From PatientOnset Occurred Days agoSymptom Duration Since onsetProgression since Onset Gradually worseningCaused by hit leg during workLocation Leg RExacerbated by Movement Free Text HPI NotesFree Text HPI Notes27 y/o female with PMHx of ovarian cysts presented to ED complaining of pain in her right leg. She had laproscopic surgery in March to remove a cyst on her left ovary. She stated that she had hit her leg at work about a week ago. She said that it had been bruised, but went away. 3 days ago, the pain in the leg returned, and now feels like she can't move or put pressure on her leg due to the pain. She felt like the pain was nerve related because her leg feels numb and tingly, and the pain radiated from her groin to her foot. The pt had no further complaints. Portions of this section were scribed by Tamika Mathur on 05/19/18 at 1654 Review of Systems ROS StatementsAll systems rev neg except as marked. Focused Review of SystemsMusculoskeletalReports: Extremity pain. NeurologicReports: Numbness, Tingling. Portions of this section were scribed by Tamika Mathur on 05/19/18 at 1310 Past Medical History - AdultStated Complaint CANT MOVE OR APPLY PRESSURE TO LEGAllergiesCoded Allergies:No Known Allergies (05/19/18) Home MedicationsDiscontinued ScriptsACETAMINOPHEN/CODEINE (TYLENOL WITH CODEINE #3 300/30 MG) 2 TAB PO Q6H PRN PRN Pain ACETAMINOPHEN/CODEINE (TYLENOL WITH CODEINE #3 300/30 MG) 2 TAB PO Q6H PRN PRN Pain #30 TABS Prov: 03/23/18 DC: 05/19/18 0950 Therapy completed Reported MedicationsNo Known Home Medications Discontinued Reported MedicationsESCITALOPRAM (LEXAPRO) 10 MG PO DAILY metroNIDAZOLE (FLAGYL) 500 MG PO BID ACETAMINOPHEN/CODEINE (TYLENOL WITH CODEINE 300-30 MG/12.5ML) 1 DOSE PO PRN PRN PAIN Review of Nursing Notes Rev avail, and agreeAdditional Medical Historyovarian cyst on left ovaryAdditional Surgical HistoryD C, laproscopic surgery to remove ovarian cystAlcohol Use Denies EtOH useDrug Use Denies recreational drugsSmoking status for patients 13 years old or older: Never SmokerOther Social History Local resident Portions of this section were scribed by Tamika Mathur on 05/19/18 at 1004 Physical Exam Vital SignsVital SignsFirst Documented: Result Date Time Pulse Ox 98 05/19 0848 B/P 130/61 / 0848 B/P Mean 84 05/19 0848 Temp 36.9 05/19 0848 Pulse 91 04/ 0848 Resp 18 05/19 0848 O2 Delivery Room air 05/19 1101 Last Documented: Result Date Time Pulse Ox 100 05/19 1753 B/P 95/54 05/19 1753 B/P Mean 67 05/19 1753 O2 Delivery Room air 05/19 175 Temp 36.7 05/19 175 Pulse 74 05/19 1753 Resp 18 05/19 1753 Review of Vital Signs Reviewed Focused PEGeneral/Const General/Const Awake, Alert, No acute distressResp/Chest Respiratory/Chest Breath sounds NL, Breath sounds = bilat, No respiratory distressCardiovascular Cardiovascular Regular rhythm, Heart sounds NL, Peripheral circulation NLMS Lower Extrem Lower Ext/Pelvis/MS No edema Text/Dict NotesAble to move the leg actively and passively in all directions. Pulses are intact.MS Ankle/Foot Ankle/Foot No swellingSkin Skin Color NL, Warm, DryNeurologic Neurologic Oriented X3, Speech NL, No motor deficits Additional PEMS Head Head Atraumatic, NormocephalicEyes Eyes PERRL, No scleral icterus, Conjunctiva NLEars/Nose/Throat Ears/Nose/Throat Atraumatic, Airway patent, Mucous membranes moistAbdomen/GI Abdomen/GI Soft, Non-tender, No guarding, No rebound, No palpable mass, No pulsatile mass Portions of this section were scribed by Tamika Mathur on 05/19/18 at 1654 Interpretation Diagnostics Lab Results InterpretationResultsLaboratory Tests 05/19/18 1400:[Embedded Image Not Available]Laboratory Tests: 05/19 1400 Chemistry Sodium (136 - 145 mmol/L) 139 Potassium (3.5 - 5.1 mmol/L) 3.7 Chloride (98 - 107 mmol/L) 108.0 H Carbon Dioxide (21 - 32 mmol/L) 23.0 Anion Gap (10 - 20) 11.7 BUN (7 - 18 mg/dL) 14 Creatinine (0.55 - 1.02 mg/dL) 0.60 Glomerular Filtr Rate (>=60 mL/min) > 60 BUN/Creatinine Ratio (10 - 20) 23.3 H Glucose (74 - 106 mg/dL) 83 Calcium (8.5 - 10.1 mg/dL) 9.1 Serum , Qual (NEGATIVE) NEGATIVE Coagulation D-Dimer (0 - 500 ng/mLFEU) 528.00 *H Hematology WBC (4.5 - 12.5 K/mm3) 7.4 RBC (3.7 - 5.2 mill/mm3) 4.46 Hgb (11.5 - 15.5 gram/dL) 13.4 Hct (36.0 - 46.0 %) 42.0 MCV (80 - 98 fL) 94.2 MCH (27.0 - 33.0 picogram) 30.0 MCHC (33.0 - 36.0 gram/dL) 31.9 L RDW (11.6 - 16.2 %) 12.2 RDW Std Deviation (37.0 - 51.0 fL) 42.4 Plt Count (150 - 450 K/mm3) 198 MPV (6.7 - 11.0 fL) 10.4 Neut % (Auto) (39.0 - 69.0 %) 50.1 Lymph % (Auto) (25.0 - 55.0 %) 42.9 Fajardo % (Auto) (0.0 - 10.0 %) 5.2 Eos % (Auto) (0.0 - 5.0 %) 1.1 Baso % (Auto) (0.0 - 1.0 %) 0.4 Neut # (Auto) (1.8 - 7.7 K/mm3) 3.69 Lymph # (Auto) (1.0 - 5.0 K/mm3) 3.15 Fajardo # (Auto) (0 - 0.8 K/mm3) 0.38 Eos # (Auto) (0.0 - 0.5 K/mm3) 0.08 Baso # (Auto) (0.0 - 0.2 K/mm3) 0.03 Add Manual Diff NO Nucleated RBC % (0 - 0 %) 0.0 Nucleated RBCs # (Man) (0.0 - 0.1 K/mm3) 0.00 Recent Impressions:RADIOLOGY - XR HIP W/PEL UNI 2+V RT 05/19 0902 Report Impression - Status: SIGNED Entered: 05/19/2018 0923 IMPRESSION: No acute fracture or dislocation. Hip joint is preserved. No AVN.Impression By: AdriTH4 Russ Patton M.D.CAT SCAN - CTA LOW EXTREMITY RT 05/19 1540 Report Impression - Status: SIGNED Entered: 05/19/2018 1742 IMPRESSION: Unremarkable abdominal angiogram and bilateral lowerextremities runoff Impression By: Nubia Herndon M.D. Lab StatementLaboratory studies reviewed and considered in the medical decision-making. Imaging StatementRadiographic studies reviewed and considered in the medical decision-making. Point of Care TestingPulse Oximetry Pulse Ox % 98 On: Room air Interpretation Interpreted by co Time 0848 Portions of this section were scribed by Tamika Mathur on 05/19/18 at 1654 Re-Evaluation MDM Free Text MDM NotesFree Text MDM NotesPt without findings to suggest emergent condition. Will give ortho f/u. ED CourseMedication(s) OrderedMedication(s) Ordered:Diagnostic Agents Sig/Brain Start time Last Medication Dose Route Stop Time Status Admin Iopamidol 0 .STK-MED ONE 05/19 1539 DC 05/19 .ROUTE 1552 Portions of this section were scribed by Tamika Mathur on 05/19/18 at 1654 Patient Discharge Departure Vital Signs/ConditionVital SignsFirst Documented: Result Date Time Pulse Ox 98 04/ 0848 B/P 130/61 04/10 0848 B/P Mean 84 / 0848 Temp 36.9 04/10 0848 Pulse 91 04/10 0848 Resp 18 / 0848 O2 Delivery Room air 05/19 1101 Last Documented: Result Date Time Pulse Ox 100 04/ 1753 B/P 95/54 / 1753 B/P Mean 67 05/19 1753 O2 Delivery Room air 05/19 1753 Temp 36.7 / 1753 Pulse 74 04/ 1753 Resp 18 05/19 1753 All vital signs available at the time of this entry have been reviewed. Clinical ImpressionClinical ImpressionPrimary Impression: Hip pain Disposition DecisionDischarge )( Discharged to Home Yes )( Time 1750 )( Date 05/19/18 Discharge/Care Plan Discharge NoteI have spoken with the patient and/or caregivers. I have explained the patient'scondition, diagnoses and treatment plan based on the information available to meat this time. I have answered the patient's and/or caregiver's questions and addressed any concerns. The patient and/or caregivers have as good an understanding of the patient's diagnosis, condition and treatment plan as can beexpected at this point. The vital signs have been stable. The patient's condition is stable and appropriate for discharge from the emergency department. The patient will pursue further outpatient evaluation with the primary care physician or other designated or consulting physician as outlined in the discharge instructions. The patient and/or caregivers are agreeable to this planof care and follow-up instructions have been explained in detail. The patient and/or caregivers have received these instructions in written format and have expressed an understanding of the discharge instructions. The patient and/or caregivers are aware that any significant change in condition or worsening of symptoms should prompt an immediate return to this or the closest emergency department or a call to 911. Supervising Physician Note Scribe StatementBy signing my name below, I, Tamika Mathur, attest that this document has been prepared under the direction and in the presence of Dr. Paz. Electronically signed: Roger Mckeon. Date: 05/19/2018. Time: 1326 Provider Scribed StatementI personally performed the services described in this documentation and reviewedthe documentation that was dictated to the scribe(s) in my presence, and it accurately records my words and actions. Matias Paz, 05/20/18 Portions of this section were scribed by Tamika Mathur on 05/19/18 at 1654 at 1354RPT #:[id number] OF REPORTEDEmergency department fmijrz2747-97-74E85:04:00V.[id number] ilable for patient weajHABKWPSKFVGJAY8064-28-61D71:55:22 [facility] 2018-05-19 08:49:00 [id number] Yy++fodrKU2ouSoveyFA3gj+HCI5y 31PLEZ9o2L1pIkVZJvec4zkeKV4628pQDP6246-80-66C82:4 9:00 [facility] ([facility])EMERGENCY PROVIDER REPORTREPORT#:[id number] REPORT STATUS: SignedDATE:05/19/18 TIME: 0849 PATIENT: BETHANY HUFF UNIT #: [id number]#: [id number] ROOM/BED:AGE: 27 SEX: F PCP PHYS: Skinny Steward DT: AUTHOR: Woody Harry DISTRICT MANAGER POSTAL SERVICE * ALL edits or amendments must be made on the electronic/computer document * Provider in Triage - Adult Provider in TriageIniKind[facility] Date/Time 05/19/18 0843 MSE Not CompleteThe medical screening exam is not complete. Further evaluation and/or treatment is required. The patient will be re-directed to the emergency department. Free Text PIT NotesFree Text PIT NotesRETURN OF RIGHT INGUINAL PAIN AFTER TRAUMATIC EVENT 1 WEEK AGO. PMH-Provider in TriageStated Complaint CANT MOVE OR APPLY PRESSURE TO LEGAllergiesCoded Allergies:No Known Allergies (05/19/18) Home MedicationsActive ScriptsACETAMINOPHEN/CODEINE (TYLENOL WITH CODEINE #3 300/30 MG) 2 TAB PO Q6H PRN PRN Pain ACETAMINOPHEN/CODEINE (TYLENOL WITH CODEINE #3 300/30 MG) 2 TAB PO Q6H PRN PRN Pain #30 TABS Prov: 03/23/18 Reported MedicationsESCITALOPRAM (LEXAPRO) 10 MG PO DAILY metroNIDAZOLE (FLAGYL) 500 MG PO BID ACETAMINOPHEN/CODEINE (TYLENOL WITH CODEINE 300-30 MG/12.5ML) 1 DOSE PO PRN PRN PAIN Additional Surgical HistoryD CPatient HistoryRelation not specified for: Family History: Cancer Family History: Diabetes Family History: Unknown Alcohol Use Denies EtOH useDrug Use Denies recreational drugsOther Social History Local resident at 0850RPT #:[id number] OF REPORTEDEmergency department obmyml7535-02-00W90:49:00V.[id number] ilable for patient qbedAVSOOAYLXWXNXN2744-43-35S94:51:41 [facility] 2018-03-26 19:32:00 [id number] AhrIBbjn1O5Ta3g/JQOQzV/eVHJfy 8+iAeVihFUV2Kws0KVdU2eZNe6ITjy6ZV9759-24-93O20:32 :00 [facility] ([facility])EMERGENCY PROVIDER REPORTREPORT#:[id number] REPORT STATUS: SignedDATE:03/26/18 TIME: 1931 PATIENT: BETHANY HUFF UNIT #: [id number]#: [id number] ROOM/BED:AGE: 27 SEX: F PCP PHYS: Skinny Steward MDSERVICE AUTHOR: Venice Zamora DISTRICT MANAGER POSTAL SERVICE * ALL edits or amendments must be made on the electronic/computer document * HPI-Abd Pain F Under 40 GeneralConfirmed Patient YesPatient Type New patientInitial Greet Date/Time 03/26/18 1931PCPPCP: MARY ANNE PATELOB/SUPPLIER MANAGER: TAWADROUS PresentationChief Complaint Abdominal painHx Obtained From Patient, Prior medical recordsSudden in Onset? NoOnset Occurred TodaySymptom Duration Since onsetProgression since Onset Constant Free Text HPI NotesFree Text HPI NotesPATIENT TO ER W/ C/O INCREASED ABD PAIN AND PURULENT DRAINAGE FROM SURGICAL INCISION SITE THAT STARTED TODAY. PT S/P DIAGNOSTIC LAPROSCOPY ON 03/23. Risk-Abd Pain F Under 40)( Ectopic Risk factors reviewed Review of Systems ROS StatementsAll systems rev neg except as marked. Focused Review of SystemsConstitutionalDenies: Chills, Fever. RespiratoryDenies: Shortness of breath. CardiovascularDenies: Chest pain. GIReports: Abdominal pain. Denies: Constipation, Diarrhea, Nausea, Vomiting. FemaleDenies: Dysuria, Flank pain, . MusculoskeletalDenies: Back pain. Additional Review of SystemsSkinReports: Laceration (SURGICAL). Past Medical History - AdultStated Complaint INFECTION SURGERYAllergiesCoded Allergies:No Known Allergies (04/09/15) Home MedicationsActive ScriptsACETAMINOPHEN/CODEINE (TYLENOL WITH CODEINE #3 300/30 MG) 2 TAB PO Q6H PRN PRN Pain ACETAMINOPHEN/CODEINE (TYLENOL WITH CODEINE #3 300/30 MG) 2 TAB PO Q6H PRN PRN Pain #30 TABS Prov: 03/23/18 Reported MedicationsESCITALOPRAM (LEXAPRO) 10 MG PO DAILY metroNIDAZOLE (FLAGYL) 500 MG PO BID ACETAMINOPHEN/CODEINE (TYLENOL WITH CODEINE 300-30 MG/12.5ML) 1 DOSE PO PRN PRN PAIN Discontinued Reported MedicationsCALCIUM CARBONATE (TUMS) 500 MG PO Q6H PRN PRN GAS/HEARTBURN IRON/FA/B12/C/DOCUSATE SODIUM (FERRALET 90) 1 TAB PO DAILY ACETAMINOPHEN/CODEINE (TYLENOL WITH CODEINE #3 300/30 MG) 1 TAB PO Q6H PRN PRN PAIN metroNIDAZOLE (FLAGYL) 375 MG PO BID Review of Nursing Notes Unavailable at this timePt reports no significant: Past medical historyAdditional Surgical HistoryD CAlcohol Use Denies EtOH useDrug Use Denies recreational drugsSmoking status for patients 13 years old or older: Current every day smokerPack years (pk/d)*(yrs): 2.5Other Social History Local resident Physical Exam Vital SignsVital SignsFirst Documented: Result Date Time Pulse Ox 100 03/26 1942 B/P 124/72 03/26 1942 B/P Mean 89 03/26 1942 O2 Delivery Room air 03/26 1942 Temp 37.1 03/26 1942 Pulse 67 03/26 1942 Resp 16 03/26 1942 Last Documented: Result Date Time Pulse Ox 100 03/26 1942 B/P 124/72 03/26 1942 B/P Mean 89 03/26 1942 O2 Delivery Room air 03/26 1942 Temp 37.1 03/26 1942 Pulse 67 03/26 1942 Resp 16 03/26 1942 Review of Vital Signs Reviewed Focused PEGeneral/Const General/Const Awake, Alert, No acute distress, Well appearing, Well developed, Well hydrated, Well nourished, Cooperative, Not toxic appearingResp/Chest Respiratory/Chest Atraumatic, Breath sounds NL, Breath sounds = bilat, No respiratory distressCardiovascular Cardiovascular Heart rate NL, Cap refill not delayed, Peripheral circulation NLAbdomen/GI Abdomen/GI Atraumatic, Soft, No distention, No palpable mass Text/Dict NotesTENDERNESS ON PALPATION TO UMBILICAL SURGICAL INCISION ONLY. SMALL AMOUNT OF SEROSANGUINOUS DRAINAGE. MINIMAL SURROUNDING ERYTHEMA. MS Back Back Non-tender, No CVA tendernessNeurologic Neurologic Oriented X3, Speech NL, Gait NL Interpretation Diagnostics Lab Results InterpretationResultsLaboratory Tests 03/26/182058:[Embedded Image Not Available]Laboratory Tests: 03/26 Chemistry Sodium (136 - 145 mmol/L) 145 Potassium (3.5 - 5.1 mmol/L) 3.9 Chloride (98 - 107 mmol/L) 108.0 H Carbon Dioxide (21 - 32 mmol/L) 30.0 Anion Gap (10 - 20) 10.9 BUN (7 - 18 mg/dL) 14 Creatinine (0.55 - 1.02 mg/dL) 0.70 Glomerular Filtr Rate (>=60 mL/min) > 60 BUN/Creatinine Ratio (10 - 20) 20.4 H Glucose (74 - 106 mg/dL) 94 Calcium (8.5 - 10.1 mg/dL) 8.9 Total Bilirubin (0.0 - 1.0 mg/dL) 0.30 Direct Bilirubin (0.0 - 0.20 mg/dL) 0.10 AST (15 - 37 IUnit/L) 18 ALT (12 - 78 IUnit/L) 25 Total Alk Phosphatase (45 - 117 IUnit/L) 60 Total Protein (6.4 - 8.2 gram/dL) 7.5 Albumin (3.4 - 5.0 g/dL) 4.1 Globulin (2.7 - 4.2 gram/dL) 3.4 Albumin/Globulin Ratio (0.75 - 1.50) 1.2 Lipase (73.0 - 393.0 U/L) 130 Serum , Qual (NEGATIVE) NEGATIVE Hematology WBC (4.5 - 12.5 K/mm3) 6.2 RBC (3.7 - 5.2 mill/mm3) 4.29 Hgb (11.5 - 15.5 gram/dL) 12.9 Hct (36.0 - 46.0 %) 39.3 MCV (80 - 98 fL) 91.6 MCH (27.0 - 33.0 picogram) 30.1 MCHC (33.0 - 36.0 gram/dL) 32.8 L RDW (11.6 - 16.2 %) 12.6 Plt Count (150 - 450 K/mm3) 193 MPV (6.7 - 11.0 fL) 10.6 Urines Urine Color (YELLOW) YELLOW Urine Appearance (CLEAR) Cloudy H Urine pH (5.0 - 8.0) 6.0 Ur Specific [place] (1.001 - 1.035) 1.026 Urine Protein (NEGATIVE mg/dL) Negative Urine Glucose (UA) (NEGATIVE mg/dL) NEGATIVE Urine Ketones (NEGATIVE mg/dL) Negative Urine Blood (NEGATIVE) Negative Urine Nitrite (NEGATIVE) NEGATIVE Urine Bilirubin (NEGATIVE mg/dL) NEGATIVE Urine Urobilinogen (NEGATIVE mg/dL) NEGATIVE Ur Leukocyte Esterase (NEGATIVE) NEGATIVE Urine RBC (0 - 5 #/HPF) 0-2 Urine WBC (0 - 5 #/HPF) 0-5 Ur Epithelial Cells (FEW per HPF) FEW Amorphous Sediment (NONE #/LPF) FEW Urine Bacteria (NONE #/HPF) FEW H Urine Mucus (FEW #/LPF) MODERATE H Microbiology: Date/Time Procedure - Status Source Growth 03/26 2058 Blood Culture - RECD BLOOD Recent Impressions:CAT SCAN - CT ABD PELVIS W/CONT 03/26 2154 Report Impression - Status: SIGNED Entered: 03/26/20182218 Impression: No acute findings in the abdomen or pelvis.Impression By: [id number] - Karla Schulz M.D. Point of Care TestingPulse Oximetry Pulse Ox % 99 On: Room air Interpretation Interpreted by me, Pulse oximetry normal Re-Evaluation MDM )( Re-Evaluation/Progress #1)( Re-Eval Status PT EDUCATED ON DIAGNOSIS, LAB/IMAGING RESULTS, PRESCRIPTIONS, S/S OF WHEN TO RETURN TO ER, AND NEED FOR F/U W/ DR. STEWARD. INSTRUCTED TO RETURN TO ER W/ NEW OR WORSENING SYMPTOMS. STABLE FOR D/C. ED CourseMedication(s) OrderedMedication(s) Ordered:Central Nervous System Agents Sig/Brain Start time Last Medication Dose Route Stop Time Status Admin Morphine Sulfate 4 MG X1ED STA 03/26 1936 DC 03/26 IV 03/26 Diagnostic Agents Sig/Brain Start time Last Medication Dose Route Stop Time Status Admin Iopamidol 0 .STK-MED ONE 03/26 2157 DC 03/26 .ROUTE 2158 ConsultationConsultation Referral/Consult Name Skinny Steward MD Manager Terminal Called MANAGER PSYCHIATRY Requested Call Time 2221 Requested Call Date 03/26/18 Call Returned Call not returned (2229) Call Returned Time 2229 Call Returned Date 03/26/18 Free Text Consult NotesCASE DISCUSSED W/ DR. SEXTON, GALLERY OR MUSEUM GUIDE FOR DR. STEWARD. WILL D/C HOME W/ SUPPLIER MANAGER F/U ON THURSDAY. PER DR. SEXTON, HE WILL LET DR. STEWARD KNOW IN AM. Patient Discharge Departure Vital Signs/ConditionVital SignsFirst Documented: Result Date Time Pulse Ox 100 03/26 1942 B/P 124/72 02/15 1943 B/P Mean 89 03/26 1942 O2 Delivery Room air 03/26 1942 Temp 37.1 03/26 1942 Pulse 67 03/26 1942 Resp 16 03/26 1942 Last Documented: Result Date Time Pulse Ox 100 03/26 1942 B/P 124/72 03/26 1942 B/P Mean 89 03/26 1942 O2 Delivery Room air 03/26 1942 Temp 37.1 03/26 1942 Pulse 67 03/26 1942 Resp 16 03/26 1942 All vital signs available at the time of this entry have been reviewed. Condition Improved, Stable Clinical ImpressionClinical ImpressionPrimary Impression: Abdominal painSecondary Impressions: Encounter for postoperative wound check Disposition DecisionDischarge )( Discharged to Home Yes )( Time 2235 )( Date 03/26/18 Discharge/Care PlanCounseled Regarding Diagnosis, Lab results, Imaging studies, Prescriptions, Needfor follow-up, When to return to EDPrescriptionsULTRAMPrescriptions Reviewed Risks, Benefits, Alternative treatment Discharge NoteI have spoken with the patient and/or caregivers. I have explained the patient'scondition, diagnoses and treatment plan based on the information available to meat this time. I have answered the patient's and/or caregiver's questions and addressed any concerns. The patient and/or caregivers have as good an understanding of the patient's diagnosis, condition and treatment plan as can beexpected at this point. The vital signs have been stable. The patient's condition is stable and appropriate for discharge from the emergency department. The patient will pursue further outpatient evaluation with the primary care physician or other designated or consulting physician as outlined in the discharge instructions. The patient and/or caregivers are agreeable to this planof care and follow-up instructions have been explained in detail. The patient and/or caregivers have received these instructions in written format and have expressed an understanding of the discharge instructions. The patient and/or caregivers are aware that any significant change in condition or worsening of symptoms should prompt an immediate return to this or the closest emergency department or a call to 911. Quality MeasuresBP F/U for HTN Referred for BP f/u < 4wk, F/u with PCP/other docPreg Test for Women w/Abd Pain Female age 14-50, Complaint of abdominal pn, Any preg test orderedSmoking Cessation Screened, tobacco user, Tobacco cess intervention at 2310RPT #:[id number] OF REPORTEDEmergency department rgzufp6037-52-86N38:32:00V.[id number] ilable for patient bbceRZKPGVIDACTNLB5469-22-52E03:10:37 [facility] 2018-03-26 19:32:00 [id number]+H zE8N5Bi0maezwJ2G4nkus04xH7Btg 9t3QoMsNvph3YPsEAtvnkBQMkAQtcCWYK9769-99-89J45:32 :00 [facility]EM[facility] PROVID[facility] REPORTREPORT#:[id number] REPORT STATUS: SignedDATE:03/26/18 TIME: 1931 PATIENT: BETHANY HUFF UNIT #: [id number]#: [id number] ROOM/BED:AGE: 27 SEX: F PCP PHYS: Skinny Steward MDSERVICE AUTHOR: Venice Zamora DISTRICT MANAGER POSTAL SERVICE * ALL edits or amendments must be made on the electronic/computer document * Venice Zamora 03/26/181931:HPI-Abd Pain F Under 40 GeneralConfirmed Patient YesPatient Type New patientPCPPCP: MARY ANNE PATELOB/SUPPLIER MANAGER: IVÁN PresentationChief Complaint Abdominal painHx Obtained From Patient, Prior medical recordsSudden in Onset? NoOnset Occurred TodaySymptom Duration Since onsetProgression since Onset Constant Free Text HPI NotesFree Text HPI NotesPATIENT TO ER W/ C/O INCREASED ABD PAIN AND PURULENT DRAINAGE FROM SURGICAL INCISION SITE THAT STARTED TODAY. PT S/P DIAGNOSTIC LAPROSCOPY ON 03/23. Risk-Abd Pain F Under 40)( Ectopic Risk factors reviewed Review of Systems ROS StatementsAll systems rev neg except as marked. Focused Review of SystemsConstitutionalDenies: Chills, Fever. RespiratoryDenies: Shortness of breath. CardiovascularDenies: Chest pain. GIReports: Abdominal pain. Denies: Constipation, Diarrhea, Nausea, Vomiting. FemaleDenies: Dysuria, Flank pain, . MusculoskeletalDenies: Back pain. Additional Review of SystemsSkinReports: Laceration (SURGICAL). Past Medical History - AdultStated Complaint INFECTION SURGERYAllergiesCoded Allergies:No Known Allergies (04/09/15) Review of Nursing Notes Unavailable at this timePt reports no significant: Past medical historyAdditional Surgical HistoryD CAlcohol Use Denies EtOH useDrug Use Denies recreational drugsSmoking status for patients 13 years old or older: Current every day smokerPack years (pk/d)*(yrs): 2.5Other Social History Local resident Physical Exam Vital SignsVital SignsFirst Documented: Result Date Time Pulse Ox 100 03/26 1942 B/P 124/72 03/26 194 B/P Mean 89 03/26 1942 O2 Delivery Room air 03/26 1942 Temp 37.1 03/26 1942 Pulse 67 03/26 1942 Resp 16 03/26 1942 Last Documented: Result Date Time Pulse Ox 100 03/26 1942 B/P 124/72 03/26 1942 B/P Mean 89 03/26 1942 O2 Delivery Room air 03/26 1942 Temp 37.1 03/26 1942 Pulse 67 03/26 1942 Resp 16 03/26 1942 Review of Vital Signs Reviewed Focused PEGeneral/Const General/Const Awake, Alert, No acute distress, Well appearing, Well developed, Well hydrated, Well nourished, Cooperative, Not toxic appearingResp/Chest Respiratory/Chest Atraumatic, Breath sounds NL, Breath sounds = bilat, No respiratory distressCardiovascular Cardiovascular Heart rate NL, Cap refill not delayed, Peripheral circulation NLAbdomen/GI Abdomen/GI Atraumatic, Soft, No distention, No palpable mass Text/Dict NotesTENDERNESS ON PALPATION TO UMBILICAL SURGICAL INCISION ONLY. SMALL AMOUNT OF SEROSANGUINOUS DRAINAGE. MINIMAL SURROUNDING ERYTHEMA. MS Back Back Non-tender, No CVA tendernessNeurologic Neurologic Oriented X3, Speech NL, Gait NL Interpretation Diagnostics Lab Results InterpretationResultsLaboratory Tests 03/26/182058:[Embedded Image Not Available]Laboratory Tests: 03/26 Chemistry Sodium (136 - 145 mmol/L) 145 Potassium (3.5 - 5.1 mmol/L) 3.9 Chloride (98 - 107 mmol/L) 108.0 H Carbon Dioxide (21 - 32 mmol/L) 30.0 Anion Gap (10 - 20) 10.9 BUN (7 - 18 mg/dL) 14 Creatinine (0.55 - 1.02 mg/dL) 0.70 Glomerular Filtr Rate (>=60 mL/min) > 60 BUN/Creatinine Ratio (10 - 20) 20.4 H Glucose (74 - 106 mg/dL) 94 Calcium (8.5 - 10.1 mg/dL) 8.9 Total Bilirubin (0.0 - 1.0 mg/dL) 0.30 Direct Bilirubin (0.0 - 0.20 mg/dL) 0.10 AST (15 - 37 IUnit/L) 18 ALT (12 - 78 IUnit/L) 25 Total Alk Phosphatase (45 - 117 IUnit/L) 60 Total Protein (6.4 - 8.2 gram/dL) 7.5 Albumin (3.4 - 5.0 g/dL) 4.1 Globulin (2.7 - 4.2 gram/dL) 3.4 Albumin/Globulin Ratio (0.75 - 1.50) 1.2 Lipase (73.0 - 393.0 U/L) 130 Serum , Qual (NEGATIVE) NEGATIVE Hematology WBC (4.5 - 12.5 K/mm3) 6.2 RBC (3.7 - 5.2 mill/mm3) 4.29 Hgb (11.5 - 15.5 gram/dL) 12.9 Hct (36.0 - 46.0 %) 39.3 MCV (80 - 98 fL) 91.6 MCH (27.0 - 33.0 picogram) 30.1 MCHC (33.0 - 36.0 gram/dL) 32.8 L RDW (11.6 - 16.2 %) 12.6 Plt Count (150 - 450 K/mm3) 193 MPV (6.7 - 11.0 fL) 10.6 Urines Urine Color (YELLOW) YELLOW Urine Appearance (CLEAR) Cloudy H Urine pH (5.0 - 8.0) 6.0 Ur Specific [place] (1.001 - 1.035) 1.026 Urine Protein (NEGATIVE mg/dL) Negative Urine Glucose (UA) (NEGATIVE mg/dL) NEGATIVE Urine Ketones (NEGATIVE mg/dL) Negative Urine Blood (NEGATIVE) Negative Urine Nitrite (NEGATIVE) NEGATIVE Urine Bilirubin (NEGATIVE mg/dL) NEGATIVE Urine Urobilinogen (NEGATIVE mg/dL) NEGATIVE Ur Leukocyte Esterase (NEGATIVE) NEGATIVE Urine RBC (0 - 5 #/HPF) 0-2 Urine WBC (0 - 5 #/HPF) 0-5 Ur Epithelial Cells (FEW per HPF) FEW Amorphous Sediment (NONE #/LPF) FEW Urine Bacteria (NONE #/HPF) FEW H Urine Mucus (FEW #/LPF) MODERATE H Microbiology: Date/Time Procedure - Status Source Growth 03/26 2058 Blood Culture - RECD BLOOD Recent Impressions:CAT SCAN - CT ABD PELVIS W/CONT 03/26 2154 Report Impression - Status: SIGNED Entered: 03/26/20182218 Impression: No acute findings in the abdomen or pelvis.Impression By: [email or web address] - Karla Schulz M.D. Point of Care TestingPulse Oximetry Pulse Ox % 99 On: Room air Interpretation Interpreted by me, Pulse oximetry normal Re-Evaluation [facility] )( Re-Evaluation/Progress #1)( Re-Eval Status PT EDUCATED ON DIAGNOSIS, LAB/IMAGING RESULTS, PRESCRIPTIONS, S/S OF WHEN TO RETURN TO ER, AND NEED FOR F/U W/ DR. STEWARD. INSTRUCTED TO RETURN TO ER W/ NEW OR WORSENING SYMPTOMS. STABLE FOR D/C. ED CourseMedication(s) OrderedMedication(s) Ordered:Central Nervous System Agents Sig/Brain Start time Last Medication Dose Route Stop Time Status Admin Morphine Sulfate 4 MG X1ED STA 03/26 1936 DC 03/26 IV 03/26 Diagnostic Agents Sig/Brain Start time Last Medication Dose Route Stop Time Status Admin Iopamidol 0 .STK-MED ONE 03/26 2157 DC 03/26 .ROUTE 2158 ConsultationConsultation Referral/Consult Name Skinny Steward MD Manager Terminal Called MANAGER PSYCHIATRY Requested Call Time 2221 Requested Call Date 03/26/18 Call Returned Call not returned (2229) Call Returned Time 2229 Call Returned Date 03/26/18 Free Text Consult NotesCASE DISCUSSED W/ DR. SEXTON, GALLERY OR MUSEUM GUIDE FOR DR. STEWARD. WILL D/C HOME W/ SUPPLIER MANAGER F/U ON THURSDAY. PER DR. SEXTON, HE WILL LET DR. STEWARD KNOW IN AM. Patient Discharge Departure Vital Signs/ConditionVital SignsFirst Documented: Result Date Time Pulse Ox 100 03/26 1942 B/P 124/72 03/26 1942 B/P Mean 89 03/26 1942 O2 Delivery Room air 03/26 1942 Temp 37.1 03/26 1942 Pulse 67 03/26 1942 Resp 16 03/26 1942 Last Documented: Result Date Time Pulse Ox 100 03/26 1942 B/P 124/72 03/26 1942 B/P Mean 89 03/26 1942 O2 Delivery Room air 03/26 1942 Temp 37.1 03/26 1942 Pulse 67 03/26 1942 Resp 16 03/26 1942 All vital signs available at the time of this entry have been reviewed. Condition Improved, Stable Clinical ImpressionClinical ImpressionPrimary Impression: Abdominal painSecondary Impressions: Encounter for postoperative wound check Disposition DecisionDischarge )( Discharged to Home Yes )( Time 2236 )( Date 03/26/18 Discharge/Care PlanCounseled Regarding Diagnosis, Lab results, Imaging studies, Prescriptions, Needfor follow-up, When to return to EDPrescriptionsULTRAMPrescriptions Reviewed Risks, Benefits, Alternative treatment Discharge NoteI have spoken with the patient and/or caregivers. I have explained the patient'scondition, diagnoses and treatment plan based on the information available to meat this time. I have answered the patient's and/or caregiver's questions and addressed any concerns. The patient and/or caregivers have as good an understanding of the patient's diagnosis, condition and treatment plan as can beexpected at this point. The vital signs have been stable. The patient's condition is stable and appropriate for discharge from the emergency department. The patient will pursue further outpatient evaluation with the primary care physician or other designated or consulting physician as outlined in the discharge instructions. The patient and/or caregivers are agreeable to this planof care and follow-up instructions have been explained in detail. The patient and/or caregivers have received these instructions in written format and have expressed an understanding of the discharge instructions. The patient and/or caregivers are aware that any significant change in condition or worsening of symptoms should prompt an immediate return to this or the closest emergency department or a call to 911. Quality MeasuresBP F/U for HTN Referred for BP f/u < 4wk, F/u with PCP/other docPreg Test for Women w/Abd Pain Female age 14-50, Complaint of abdominal pn, Any preg test orderedSmoking Cessation Screened, tobacco user, Tobacco cess intervention [place] 03/27/18 0009:HPI-Abd Pain F Under 40 GeneralInitial Greet Date/Time 03/26/18 193 Past Medical History - AdultHome MedicationsActive ScriptsACETAMINOPHEN/CODEINE (TYLENOL WITH CODEINE #3 300/30 MG) 2 TAB PO Q6H PRN PRN Pain ACETAMINOPHEN/CODEINE (TYLENOL WITH CODEINE #3 300/30 MG) 2 TAB PO Q6H PRN PRN Pain #30 TABS Prov: 03/23/18 Reported MedicationsESCITALOPRAM (LEXAPRO) 10 MG PO DAILY metroNIDAZOLE (FLAGYL) 500 MG PO BID ACETAMINOPHEN/CODEINE (TYLENOL WITH CODEINE 300-30 MG/12.5ML) 1 DOSE PO PRN PRN PAIN Physical Exam Vital SignsVital Signs Interpretation Diagnostics Lab Results InterpretationResults Re-Evaluation MDM ED CourseMedication(s) Ordered Patient Discharge Departure Vital Signs/ConditionVital Signs Supervising Physician Note MidLv Saw Pt AloneI have reviewed the PA/DISTRICT MANAGER POSTAL SERVICE's note and plan of care. I was available for consultation as needed at all times during the patient's visit in the emergency department. I agree with the plan and disposition. at 2310 at 0009RPT #:[id number] OF REPORTEDEmergency department vusnyx3947-47-75N28:32:00V.[id number] ilable for patient srxgNNEEAZDICTDMSH3737-25-78Y40:09:26 [facility] 2018-03-23 13:03:00 [id number] AorxgCMShOoTQgCRAqCOku33i1FSF Um3GCXI1C7YukeBlkV7YlEFCDgM56jeSa1087-41-91O19:03 :00 [facility] ([facility])Post Anesthesia EvaluationREPORT#:[id number] REPORT STATUS: SignedDATE:03/23/18 TIME: 1303 PATIENT: BETHANY HUFF UNIT #: [id number]#: [id number] ROOM/BED:: 90 AGE: 27 SEX: F ATTEND: Skinny Steward [facility] AUTHOR: Hank Palacios MD * ALL edits or amendments must be made on the electronic/computer document * Post Anesthesia Evaluation Anes. changes from pre-op evalORM Surgeries: Surgery Date and Time: 03/23/2018 0700 Primary Procedure: LAPAROSCOPY DIAGNOSTIC, LYSIS OF Secondary Procedure: DRAINAGE OF LEFT OVARIAN CYST Anesthetic: GETASurgery:Same as above.Date: 03/23/18Level of consciousness: patient awake, able to answer questions, participate in this eval.Neurological assessment: Neuromuscular block: resolved as expected Musculoskeletal: moves all extremities, sensation intactVital signs:Last Documented: Result Date Time Pulse Ox 100 03/23 916 B/P 98/47 03/23 916 O2 Delivery Room air 03/23 916 Temp 36.9 03/23 916 Pulse 64 03/23 916 Resp 16 03/23 916 Cardiovascular: CV system stable, vital signs stableRespiratory/Airway: respiratory system stable, maintains without supportPain: adequately controlledHydration: adequateTemp status: greater than 96.8F, normothermicPresence of N/V: noAnesthesia complications: noOther changes requiring f/u: noneConclusions: no apparent anes. issues at 1305 RPT #:[id number] OF REPORTCLClinical [id number]:03:00V.[id number] able for patient [id number]:05:18 [facility] 2018-03-23 13:03:00 [id number] VvkfgBBLiBbZCcQCXhQWlv93l7CYA Yx7EOGA7C2LpllFirI7JyEYSKhN46qiNy4848-08-08X36:03 :00 [facility] ([facility])Post Anesthesia EvaluationREPORT#:[id number] REPORT STATUS: SignedDATE:03/23/18 TIME: 1303 PATIENT: BETHANY HUFF UNIT #: [id number]#: [id number] ROOM/BED:: 90 AGE: 27 SEX: F ATTEND: Skinny Steward [facility] AUTHOR: Hank Palacios MD * ALL edits or amendments must be made on the electronic/computer document * Post Anesthesia Evaluation Anes. changes from pre-op evalORM Surgeries: Surgery Date and Time: 03/23/2018 0700 Primary Procedure: LAPAROSCOPY DIAGNOSTIC, LYSIS OF Secondary Procedure: DRAINAGE OF LEFT OVARIAN CYST Anesthetic: GETASurgery:Same as above.Date: 03/23/18Level of consciousness: patient awake, able to answer questions, participate in this eval.Neurological assessment: Neuromuscular block: resolved as expected Musculoskeletal: moves all extremities, sensation intactVital signs:Last Documented: Result Date Time Pulse Ox 100 03/23 916 B/P 98/47 03/23 916 O2 Delivery Room air 03/23 916 Temp 36.9 03/23 916 Pulse 64 03/23 916 Resp 16 03/23 916 Cardiovascular: CV system stable, vital signs stableRespiratory/Airway: respiratory system stable, maintains without supportPain: adequately controlledHydration: adequateTemp status: greater than 96.8F, normothermicPresence of N/V: noAnesthesia complications: noOther changes requiring f/u: noneConclusions: no apparent anes. issues at 1305 RPT #:[id number] OF REPORTCLClinical [id number]:03:00V.[id number] able for patient [id number]:53:38 [facility] 2018-03-23 08:18:00 [id number] v+rGgukN7C1HhEiYDl15qhdz2Imwa +9Ol/pdeKnfPRH6tA3Zn59S+sqWodCvGU3147-94-34L00:18 :[id number] [facility] PATIENT NAME: BETHANY HUFF ADMIT DATE: 03/23/18ACCOUNT NO: [id number] ROOM NO: AGE: 27 REPORT TYPE: OPERATIVE REPORT SEX: F DATE OF : [birth year]ADMITTING PHYSICIAN: ATTENDING PHYSICIAN:Skinny Steward MD OPERATION DATE: 03/23/2018 PREOPERATIVE DIAGNOSIS: Pelvic pain. POSTOPERATIVE DIAGNOSIS: Pelvic pain. PROCEDURES:1. Diagnostic laparoscopy.2. Lysis of adhesions.3. Drainage of left ovarian cyst. SURGEON: Skinny Steward MD LEASING AGENT: None. ANESTHESIA: General endotracheal anesthesia. ESTIMATED BLOOD LOSS: 10 mL. COMPLICATIONS: None. FINDINGS:1. A ____ cm left ovarian simple cyst.2. Filmy adhesions between the left ovary and the posterior uterus.3. Grossly normal fallopian tubes, right ovary and uterus.4. No endometriosis noted. TECHNIQUE: The patient was taken to the operating room, where anesthesia wasadministered. She was then prepped and draped in the usual sterile fashion. Asponge stick was placed in the vagina to be used as uterine manipulator. Attention was then turned to the infraumbilical area where 3 mL of 0.25%Marcaine with epinephrine was injected and a 5-mm skin incision made and a 5-mmbladeless trocar advanced under direct laparoscopic visualization. Theperitoneal cavity was insufflated with CO2 gas. A second area of 3 cm above thepubic symphysis and to the left of the midline was injected with 3 mL of 0.25%Marcaine with epinephrine and a 5-mm skin incision made and a 5-mm bladelesstrocar advanced under direct laparoscopic visualization. A third area to theright of the midline and 3 cm above the pubic symphysis was injected with 3 mLof 0.25% Marcaine with epinephrine and a 5-mm skin incision made and a 5-mmbladeless trocar advanced under direct laparoscopic visualization. A survey ofthe pelvic anatomy revealed the findings as noted above. The laparoscopicscissors were used to lyse through the adhesions between the left ovary and theposterior uterus. This was done with excellent hemostasis noted. There was PATIENT NAME: BETHANY HUFF also a single adhesion between the right ovary and the posterior uterus, whichwas also lysed with excellent hemostasis noted. Attention was then turned tothe left ovary where the monopolar cautery was used to drain the ____ cm leftovarian cyst with clear fluid noted from the cyst. Excellent hemostasis wasnoted. Following this, the pelvis was examined laparoscopically and there wereno other gross abnormalities. There was no endometriosis identified. At thispoint, the pelvis was irrigated and all fluid was suctioned out of the pelvis. The instruments were removed from the peritoneal cavity. The gas was allowed todeflate. The trocars were removed from the abdominal wall. The skin incisionswere closed with 4-0 Vicryl and Dermabond. The patient tolerated the procedurewell. All sponge, needle, and instrument counts were correct. The patient wastaken to recovery room in good condition. Dictated By: Skinny Steward MD WT: OP:V.SHELTON/LEATHAWBA/NTSDD: 03/23/2018 08:18:00DT: 03/23/2018 08:51:20Conf#: [id number]/[facility]#: [id number] Authenticated by Skinny Steward On 03/26/2018 12:04:22 PM at 1204 PATIENT NAME: BETHANY HUFF [id number]:51:00V.[id number] lable for patient [id number]:04:06 [facility]
--- NOTE | 2023-04-03 09:38 | EDPHYS ---
Physician Documentation [facility] Name: Bethany Osorio Age: 32 yrs Sex: Female : 1990 Arrival Date: 04/03/2023 Time: 09:13 Bed 19 Private MD: ED Physician Britton Matthews HPI: 04/03 09:33 This 32 yrs old Female presents to ER via Ambulatory with complaints of Shoulder Pain. rn 09:33 The patient or guardian complains of pain. left shoulder. Context: The problem was rn sustained at an unknown site, resulted from repetitive motion, The patient reports no decreased range of motion. The patient reports no obvious deformity. Onset: The symptoms/episode began/occurred Months ago. Modifying factors: the symptoms are alleviated by remaining still, The symptoms are aggravated by movement, rotation of arm. Associated signs and symptoms: Pertinent negatives: abdominal pain, chest pain, Numbness in left shoulder tingling, Weakness in left arm. Severity of symptoms: At their worst the symptoms were moderate, in the emergency department the symptoms are unchanged. The patient has experienced similar episodes in the past. The patient has not recently seen a physician. Patient reports months of left shoulder pain and painful range of motion. Pain goes away at rest. No direct injury or fall. 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 No weakness of extremity. No fever. No neck pain. No chest pain.. 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 - Social history:: Smoking status: Patient reports the use of cigarette tobacco products, smokes one-half pack cigarettes per day. - Family history:: not pertinent. - Hospitalizations: : No recent hospitalization is reported. ROS: 09:33 Constitutional: Negative for fever, chills, and weight loss, Eyes: Negative for injury, rn pain, redness, and discharge, Neck: Negative for injury, pain, and swelling, Cardiovascular: Negative for chest pain, palpitations, and edema, Back: Negative for injury and pain, MS/Extremity: Positive for left shoulder pain Skin: Negative for injury, rash, and discoloration, Neuro: Negative for headache, weakness, numbness, tingling, and seizure, Exam: 09:33 Constitutional: This is a well developed, well nourished patient who is awake, alert, rn and in no acute distress. Cardiovascular: Regular rate and rhythm. No pulse deficits. MS/ Extremity: Pulses equal, no cyanosis. Neurovascular intact. Pain with external rotation and elevation of the left shoulder. No gross deformity. No ecchymosis. No tenderness along collarbone or scapula. 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 Neuro: Awake and alert, GCS 15, oriented to person, place, time, and situation. Motor strength 5/5 in all extremities. Sensory grossly intact. Vital Signs: 09:24 BP 123 / 72; Pulse 76; Resp 16; Temp 97.8; Pulse Ox 100% ; Weight 63.5 kg; Height 5 ft. mb9 8 in. ; Pain 8/10; 09:24 Body Mass Index 21.29 (63.50 kg, 172.72 cm) mb9 09:24 Pain Scale: Adult mb9 MDM: 09:18 Patient medically screened. rn 09:33 Differential diagnosis: tendonitis. Data reviewed: vital signs, nurses notes, and as a rn result, I will discharge patient. Counseling: I had a detailed discussion with the patient and/or guardian regarding the historical points, exam findings, and any diagnostic results supporting the discharge/admit diagnosis, radiology results, the need for outpatient follow up, to return to the emergency department if symptoms worsen or persist or if there are any questions or concerns that arise at home. Special discussion: I discussed with the patient/guardian in detail that at this point there is no indication for admission to the hospital. It is understood, however, that if the symptoms persist or worsen the patient needs to return immediately for re-evaluation. ED course: Patient most likely with rotator cuff tendinitis, has been happening for months and no acute injury or gross change. Recommend rest and ice and to expect weeks of discomfort with slow healing process especially given her line of work. Return precautions given and understood.. 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
--- NOTE | 2023-04-03 09:38 | ER ---
Nurse's Notes [facility] Name: Bethany Osorio Age: 32 yrs Sex: Female : 1990 Arrival Date: 04/03/2023 Time: 09:13 Bed 19 Private MD: Diagnosis: Rotator Cuff Tendinitis, Left shoulder Presentation: 04/03 09:24 Chief complaint: Patient states: "I've been having left shoulder pain for the past few mb9 weeks. The pain is sharp and comes and goes.". Coronavirus screen: Vaccine status: Patient reports receiving the 2nd dose of the covid vaccine. Ebola Screen: No symptoms or risks identified at this time. Initial Sepsis Screen: Does the patient meet any 2 criteria? No. Patient's initial sepsis screen is negative. Does the patient have a suspected source of infection? No. Patient's initial sepsis screen is negative. Risk Assessment: Do you want to hurt yourself or someone else? Patient reports no desire to harm self or others. Onset of symptoms was 2023. 09:24 Method Of Arrival: Ambulatory 9 09:24 Acuity: GILDARDO 5 mb9 Triage Assessment: 09:25 General: Appears in no apparent distress. Behavior is calm, cooperative. Pain: mb9 Complains of pain in left shoulder Pain does not radiate. Pain currently is 8 out of 10 on a pain scale. Quality of pain is described as sharp, Pain began 1-2 weeks Is intermittent, Aggravated by increased activity, repositioning. EENT: No signs and/or symptoms were reported regarding the EENT system. Neuro: Ramirez Agitation-Sedation Scale (RASS): 0 - Alert and Calm Level of Consciousness is awake, alert, obeys commands, Oriented to person, place, time, situation, Appropriate for age. Cardiovascular: Patient's skin is warm and dry. Respiratory: Airway is patent Respiratory effort is even, unlabored, Respiratory pattern is regular, symmetrical. GI: No signs and/or symptoms were reported involving the gastrointestinal system. : No signs and/or symptoms were reported regarding the genitourinary system. Derm: Skin is pink, warm \\T\\ dry. Musculoskeletal: Range of motion: limited in left shoulder. 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 - Social history:: Smoking status: Patient reports the use of cigarette tobacco products, smokes one-half pack cigarettes per day. - Family history:: not pertinent. - Hospitalizations: : No recent hospitalization is reported. Screenin: [facility] ED Fall Risk Assessment (Adult) History of falling in the last 3 months, mb9 including since admission No falls in past 3 months (0 pts) Confusion or Disorientation No (0 pts) Intoxicated or Sedated No (0 pts) Impaired Gait No (0 pts) Mobility Assist Device Used No (0 pt) Altered Elimination No (0 pt) Score/Fall Risk Level 0 - 2 = Low Risk Oriented to surroundings, Maintained a safe environment, Educated pt \\T\\ family on fall prevention, incl call for assistance when getting out of bed. Abuse screen: Denies threats or abuse. Nutritional screening: No deficits noted. Tuberculosis screening: No symptoms or risk factors identified. Assessment: : Reassessment: see triage assessment. mb9 Vital Signs: 09:24 BP 123 / 72; Pulse 76; Resp 16; Temp 97.8; Pulse Ox 100% ; Weight 63.5 kg; Height 5 ft. mb9 8 in. ; Pain 8/10; 09:24 Body Mass Index 21.29 (63.50 kg, 172.72 cm) mb9 09:24 Pain Scale: Adult mb9 ED Course: 09:15 Patient arrived in ED. mr 09:18 Britton Matthews MD is Attending Physician. rn 09:24 Kyara Winston RN is Primary Nurse. mb9 09:25 Triage completed. mb9 09:25 Arm band placed on. mb9 09:26 Bed in low position. Call light in reach. Side rails up X 1. Client placed on mb9 continuous cardiac and pulse oximetry monitoring. NIBP monitoring applied. :27 No provider procedures requiring assistance completed. Patient did not have IV access mb9 during this emergency room visit. Administered Medications: No medications were administered Medication: :27 VIS not applicable for this client. mb9 Outcome: 09:37 Discharge ordered by . rn 09:46 Discharged to home ambulatory, mb9 09:46 Condition: stable 09:46 Discharge instructions given to patient, Instructed on discharge instructions, follow up and referral plans. Demonstrated understanding of instructions, follow-up care, 09:47 Patient left the ED. mb9 Signatures: Kyara Pedersen, Britton Aquino MD MD rn Breneman, Mary Beth, RN RN mb9 Corrections: (The following items were deleted from the chart) 09:31 09:24 Acuity: GILDARDO 4 mb9 mb9
[2023-04-03 10:00] VITALS: BP 123/72; TEMP 97.8; O2SAT 100
== END ==
LOC: ER 09:13
DX: M77.8 Other enthesopathies, not elsewhere classified (principal); F17.210 Nicotine dependence, cigarettes, uncomplicated